=== PATIENT | female | born 1970 | race Caucasian/White ===

== ENCOUNTER 2018-12-21 14:57 | Outpatient (REF) | payer OTHER, SELFPAY ==
--- NOTE | 2018-12-21 14:00 | PAPFT_PTH ---
PATIENT: Ella Upton LOC: [facility]#:[id number] AGE/SX: 48/F ROOM: RE12/21/[address]: Trina Zapata : 1970 BED: DIS: 12/21/2018 SPEC #: [id number] RECD: 12/22/18 12:54 STATUS: FIONA STORY #: [id number] IRVIN: 12/21/18 14:[address]: Trina Zapata DEPT: [facility] Cytology RECD BY: Bruna Bejarano Tissues: 1 - CX/ENDOCX FOR PAP SMEARS Procedures: PAP THIN PREP/UVM Screening HPV DNA PROBE Comments: [id number]
[2018-12-21 22:21] LABS: Iron 74 ug/dL (50-175); Total Iron Binding Capacity 372 ug/dL (250-450); Transferrin Sat 20 % (15-50)
[2018-12-21 22:24] LABS: Abs Immature Grans 0.01 k/cumm (0.0-0.09); Absolute Basophil Count 0.04 k/cumm (0.0-0.2); Absolute Eosinophil Count 0.17 k/cumm (0.0-0.7); Absolute Lymphocyte Count 3.54 k/cumm (1.2-3.4); Absolute Neutrophil Count 3.44 k/cumm (1.2-6.7); Basophils % 0.5; Eosinophils % 2.2; HCT 41.5 % (36.0-46.0); HGB 13.7 g/dL (12.0-15.5); Immature Grans % 0.1; Lymphocytes % 46.6; Mean Corpuscular Hemoglobin 29.5 pg (27.0-33.0); Mean Corpuscular Volume 89.2 fL (80-95); Mean Platelet Volume 9.9 fL (8.0-11.0); Monocytes % 5.3; Neutrophils % 45.3; Platelet Count 259 x1000/uL (130-400); RBC 4.65 m/cumm (4.00-5.20); RBC Distribution Width 13.6 % (11.7-14.6)
[2018-12-21 22:58] LABS: Anion Gap 11.7 mmol/L (3-11); BUN 15 mg/dL (7-18); CO2 26.3 mmol/L (21.0-32.0); CREATININE 0.96 mg/dL (0.55-1.02); Calcium 9.6 mg/dL (8.5-10.1); Chloride 101 mmol/L (98-107); Cholesterol 279 mg/dL (50-200); Ferritin 42 ng/mL (8-388); Glucose 91 mg/dL (70-100); HDL Cholesterol 58 mg/dL (40-60); LDL CHOLESTEROL 187 mg/dL (<100); Potassium 3.9 mmol/L (3.5-5.1); Sodium 139 mmol/L (136-145); TSH (W/Ref FT4) 2.75 uIU/mL (0.358-3.74); Triglyceride 221 mg/dL (30-150); Vitamin B12 1125 pg/mL (193-986)
== END 2018-12-21 15:17 ==
LOC: NCHCN 14:57
PROVIDERS: PCP Nurse Practitioner Family; Visit Provider Nurse Practitioner Family
DX: Z00.00 Encounter for general adult medical examination without abnormal findings (principal); F32.9 Major depressive disorder, single episode, unspecified; F17.200 Nicotine dependence, unspecified, uncomplicated; N39.3 Stress incontinence (female) (male); R41.3 Other amnesia; R51 Headache; Z12.4 Encounter for screening for malignant neoplasm of cervix; Z11.51 Encounter for screening for human papillomavirus (HPV); Z01.419 Encounter for gynecological examination (general) (routine) without abnormal findings
CPT/HCPCS: 80048; 80061; 83721; 88142; 82607; 82728; 83540; 83550; 84443; 85025; 87624

== ENCOUNTER 2020-08-25 22:11 | Outpatient (REF) | payer OTHER, SELFPAY ==
[2020-08-29 10:09] LABS: COVID-19 RT-PCR Result NEGATIVE (Negative)
== END 2020-08-25 22:31 ==
LOC: NCHCN 22:11
PROVIDERS: PCP Nurse Practitioner Family; Visit Provider Nurse Practitioner Family
DX: Z20.828 Contact with and (suspected) exposure to other viral communicable diseases (principal)
CPT/HCPCS: U0003

== ENCOUNTER 2021-07-26 21:10 | Outpatient (REF) | payer OTHER, SELFPAY ==
[2021-07-26 21:56] LABS: Anion Gap 10.4 mmol/L (3-11); BUN 12 mg/dL (7-18); CO2 27.6 mmol/L (21.0-32.0); CREATININE 0.9 mg/dL (0.55-1.02); Calcium 9.2 mg/dL (8.5-10.1); Calculated LDL 168 mg/dL (<100); Chloride 103 mmol/L (98-107); Cholesterol 253 mg/dL (<200); Glucose 88 mg/dL (74-106); HDL Cholesterol 48 mg/dL (40-60); Potassium 4.6 mmol/L (3.5-5.1); Sodium 141 mmol/L (136-145); Triglyceride 186 mg/dL (<150)
== END 2021-07-26 21:11 | disposition home or self-care (01) ==
LOC: NCHCN 21:10
PROVIDERS: PCP Nurse Practitioner Family; Visit Provider Nurse Practitioner Family
DX: R42 Dizziness and giddiness (principal); E78.5 Hyperlipidemia, unspecified; Z00.00 Encounter for general adult medical examination without abnormal findings; L29.9 Pruritus, unspecified
CPT/HCPCS: 80048; 80061

== ENCOUNTER 2021-08-28 17:02 | Outpatient (REF) | payer OTHER, SELFPAY ==
[2021-08-29 14:24] LABS: COVID-19 RT-PCR UVMMC Result Negative (Negative)
== END 2021-08-28 17:03 | disposition home or self-care (01) ==
LOC: NCHCN 17:02
PROVIDERS: PCP Nurse Practitioner Family; Visit Provider Nurse Practitioner Family
DX: Z20.822 Contact with and (suspected) exposure to COVID-19 (principal)
CPT/HCPCS: U0003

== ENCOUNTER 2021-09-03 01:58 | Outpatient (CLI) | payer OTHER, SELFPAY ==
--- NOTE | 2021-09-03 15:00 | DI.MAMMO_ITS ---
Exam(s) MAMMO SCREENING EXAM: MAMMO SCREENING CLINICAL HISTORY: SCREENING, Z12.31. TECHNIQUE: Bilateral full field digital CC and MLO mammographic images were obtained with 3D tomosyn thesis and utilizing computer aided detection (CAD). COMPARISON: Prior mammograms dating back to 2013, the most recent being January 2017. FINDINGS: In the right breast there has been interval development 2 noncalcified nodules, both measuring approx imately 5 x 5 millimeters and located 5 cm in from the nipple on the 3D cc view. In the left breast there is also a new nodular density towards the upper outer quadrant located appro ximately 11 cm in from the nipple on the MLO view. No malignant-appearing microcalcification groups in either breast There is no significant architectural distortion nor skin thickening-retraction. IMPRESSION: Compared to most recent study of 2016 there are 2 nodules in the right breast and a single new nodule in the left breast. Bilateral spot compression views and bilateral breast ultrasound are recommende d. Category: Density: Breast density Category C or D implies that the patient has dense breast tissue. Dense breast tissue can make it harder to find cancer on a mammogram. Dense breast tissue is also associated with an incr eased risk of breast cancer. This information about the result of the mammogram report was provided to the patient to raise their awareness. Use this report when you speak with the patient about their risks for breast cancer, which includes their family history. At that time, you may recommend additional screening tests (Ultrasoun d or MRI) as these tests may add significant information. A negative radiographic report should not delay biopsy if a dominant or clinically suspicious mass is present. Up to ten percent of cancers are not identified on mammography. A negative report may reinforce clinical impression. Adenosis and dense breasts may obscure an underlying neoplasm. False positive reports average 6 to 10%. Patient will receive a letter notifying them of these results.
== END 2021-09-03 02:18 ==
PROVIDERS: PCP Nurse Practitioner Family; Visit Provider Nurse Practitioner Family
DX: Z12.31 Encounter for screening mammogram for malignant neoplasm of breast (principal); R92.8 Other abnormal and inconclusive findings on diagnostic imaging of breast
CPT/HCPCS: 77063; 77067

== ENCOUNTER 2021-09-20 02:32 | Outpatient (CLI) | payer OTHER, SELFPAY ==
--- NOTE | 2021-09-20 | DI.US_ITS ---
Exam(s) US BREAST LT COMPLETE US BREAST RT COMPLETE MG MAMMO SCREEN CALL BACK BI EXAM: MG MAMMO SCREEN CALL BACK BI AND BILATERAL COMPLETE BREAST ULTRASOUND CLINICAL HISTORY: F/U MAMMO, NEW LT BREAST NODULAR DENSITY, NEW RT BREAST NODULES. TECHNIQUE: BILATERAL spot mammographic images obtained with 3D tomosynthesisand utilizing computer a ided detection (CAD). . Complete BILATERAL breast Ultrasound was also performed, including all 4 quadrants, the retroareolar region, and the ipsilateral axilla. COMPARISON: Prior mammograms were reviewed. This additional imaging was performed due to findings described on the recent screening mammogram of 09/03/2021. FINDINGS: Diagnostic right breast mammogram:Spot compression 3D view does not dissipate 2 similar appearing nod ules. Diagnostic left breast mammogram:Spot-compression 3D view appears to dissipate the nodule described o n the 09/03/2021 mammogram. Bilateral Complete Ultrasound: RIGHT BREAST: At the 5 o'clock position there are 2 adjacent microcysts measuring 5 and 6 millimeters, these corres ponding to the 2 new nodules on the mammogram. At the 10 o'clock position there is another microcyst measuring 4 millimeters. No other 5 significant findings in all 4 quadrants. Right axilla is negative for adenopathy. LEFT BREAST: There are no significant ultrasound findings in the upper outer quadrant correspond to the finding de scribed on the recent screening mammogram (which is also less evident on spot compression view perfor med today). At the 4 o'clock position there is a 6 x 5 millimeter conglomeration of microcysts. At the 1 o'clock position there is a 4 millimeter hemorrhagic microcyst. No other significant ultrasound findings in all 4 quadrants. Left axilla is negative for significant adenopathy. IMPRESSION: 1. All findings today have benign-appearing characteristics. The 2 nodules in the right breast seen o n the recent mammogram correspond to 2 adjacent microcysts at the 5 o'clock position of the right mary lou ast, as described above. Additional benign microcysts is seen at 10 o'clock position of the same righ t breast. 2. Finding in the left breast seen on the recent mammogram appears non concerning on additional imagi ng performed today. Incidentally note today on ultrasound of the left breast are few microcysts as de scribed above. 3. Most importantly, there are no solid lesions seen in either breast. Appropriate follow-up , as discussed by myself with the patient today, is repeat right breast mammogr am in 6 months. The patient was informed of these findings and recommendations prior to leaving the department today. BI-RADS Category 3 - 6 month - Probably Benign Finding: Recommend follow-up mammography in 6 months Breast Density - Category C - Heterogeneously dense Breast density Category C or D implies that the patient has dense breast tissue. Dense breast tissue can make it harder to find cancer on a mammogram. Dense breast tissue is also associated with an incr eased risk of breast cancer. This information about the result of the mammogram report was provided to the patient to raise their awareness. Use this report when you speak with the patient about their risks for breast cancer, which includes their family history. At that time, you may recommend additional screening tests (Ultrasoun d or MRI) as these tests may add significant information. A negative radiographic report should not delay biopsy if a dominant or clinically suspicious mass is present. Up to ten percent of cancers are not identified on mammography. A negative report may reinforce clinical impression. Adenosis and dense breasts may obscure an underlying neoplasm. False positive reports average 6 to 10%. Patient will receive a letter notifying them of these results.
== END 2021-09-20 02:52 ==
PROVIDERS: PCP Nurse Practitioner Family; Visit Provider Nurse Practitioner Family
DX: R92.8 Other abnormal and inconclusive findings on diagnostic imaging of breast (principal); N60.01 Solitary cyst of right breast
CPT/HCPCS: 76642; 77063; 77067

== ENCOUNTER 2022-04-27 13:37 | Emergency (ER) | payer OTHER, SELFPAY ==
[2022-04-27] VITALS (36 sets, daily range): BP systolic 95–137; BP diastolic 57–94; PULSE 53–87; RESP 9–18; TEMP 37.1; O2SAT 96–99
--- NOTE | 2022-04-27 13:15 | RT.EKG_ITS ---
APPROVED REPORT Exam: Resting ECG Reason for Exam: dizzy weak Patient Location: E HR:55 bpm ECG Measurements Heart Rate 55 AXIS UT 157 P 60 QRSd 89 QRS 29 QT 416 T 56 QTc 397 Conclusion Sinus bradycardia...rate< 60
--- NOTE | 2022-04-27 14:15 | DI.CT_ITS ---
Exam(s) CT HEAD WO EXAM: CT HEAD WO CLINICAL HISTORY: Altered mental status. TECHNIQUE: Imaging Protocol: Axial computed tomography images with coronal and sagittal reformatted images were created and reviewed COMPARISON: CT HEAD WITHOUT CONTRAST from 01/10/2010 FINDINGS: Ventricles and Extra axial spaces: Normal in size and morphology for the patient's age. Hemorrhage: None. Cerebral parenchyma: Normal. Midline shift: None. Brainstem/Cerebellum: Normal. Calvarium: Normal. Visualized Paranasal sinuses/Mastoids: Mucous retention cyst left maxillary sinus. Some mucous reten tion in the ethmoid sinuses. Prior sinus surgery. Soft Tissues: Unremarkable. IMPRESSION: No acute intracranial process. RADIATION DOSE DELIVERED: 654.28mGy.cm Total DLP DATA REPOSITORY: All CT scans at this facility are submitted to the National Radiology Data Registry (NRDR) Dose Index Registry (DIR) with the [employer] ([employer]). RADIATION OPTIMIZATION: All CT scans at this facility use at least one of these dose optimization te chniques: automated exposure control; mA and/or kV adjustment per patient size (includes targeted exa ms where dose is matched to clinical indication); or iterative reconstruction.
[2022-04-27 14:16] LABS: Bilirubin Negative (Negative); Blood Negative (Negative); Clarity Clear (Clear); Glucose Negative (Negative); Ketones Negative (Negative); Leukocyte Esterase Negative (Negative); Nitrite Negative (Negative); Specific Gravity <= 1.005 (1.005-1.025); Urobilinogen 0.2 EU/dL (Up TO 0.2)
[2022-04-27 14:33] LABS: *AMPHETAMINES SCREEN URINE Negative (Negative); *BARBITURATES SCREEN URINE Negative (Negative); *BENZODIAZEPINES SCREEN URINE Negative (Negative); Cannabinoids THC Negative (Negative); Cocaine Screen,Urine Negative (Negative); METHADONE URINE SCREEN Negative (Negative); OPIATES URINE SCREEN Negative (Negative)
[2022-04-27 14:49] LABS: Tricyclic Antidepressants Negative (Negative)
[2022-04-27 15:02] LABS: Abs Immature Grans 0.01 10^3/uL (0.0-0.06); Absolute Basophil Count 0.05 10^3/uL (0.0-0.2); Absolute Eosinophil Count 0.08 10^3/uL (0.0-0.7); Absolute Lymphocyte Count 2.87 10^3/uL (1.2-3.4); Absolute Monocyte Count 0.35 10^3/uL (0.1-0.8); Absolute Neutrophil Count 4.17 10^3/uL (1.2-6.7); Basophils % 0.7; Eosinophils % 1.1; HCT 41.8 % (36.0-46.0); HGB 13.9 g/dL (11.2-15.7); Immature Grans % 0.1; Lymphocytes % 38.1; MCH 29.4 pg (27.0-33.0); MCHC 33.3 % (32.0-36.0); MCV 89 fL (80-95); Monocytes % 4.6; Neutrophils % 55.4; Platelet Count 229 10^3/uL (130-400); RBC 4.72 10^6/uL (3.93-5.22); RDW 13.1 % (11.7-14.6); RDW-SD 42.7 fL; WBC 7.53 10^3/uL (4.4-10.8)
[2022-04-27 15:08] LABS: Ammonia < 10 umol/L (11-32)
[2022-04-27 15:20] LABS: ALT 26 U/L (14-59); AST 17 U/L (15-37); Alkaline Phosphatase 79 U/L (46-116); Anion Gap 5.2 mmol/L (3-11); BUN 18 mg/dL (7-18); Bilirubin, Total 0.4 mg/dL (0.2-1.0); CO2 30.8 mmol/L (21.0-32.0); CREATININE 0.9 mg/dL (0.55-1.02); Calcium 9.4 mg/dL (8.5-10.1); Chloride 103 mmol/L (98-107); Glucose 100 mg/dL (74-106); Magnesium 2.2 mg/dL (1.8-2.4); Potassium 4.1 mmol/L (3.5-5.1); Sodium 139 mmol/L (136-145); TSH 2.24 uIU/mL (0.36-3.74); Total Protein 7.8 g/dL (6.4-8.2); Troponin I < 50 ng/L (<or=60)
--- NOTE | 2022-04-27 15:25 | ED.GENADUL_ITS ---
Discharge Plan Disposition Patient Disposition: HOME Condition: Stable Discharge Details Clinical Impression: Malaise, Light-headed feeling Primary Care Provider: Trina Zapata ED Provider: [facility] Home Meds and New Rx's Prescriptions: Continued acyclovir 400 mg tablet 400 mg PO BID fluticasone propionate 50 mcg/actuation spray,suspension 2 spray TI DAILY fexofenadine [Carmina Allergy] 180 mg tablet 180 mg PO DAILY multivitamin tablet 1 tab PO DAILY sertraline 100 mg tablet 150 mg PO DAILY bupropion HCl [Wellbutrin XL] 300 mg tablet extended release 24 hr 300 mg PO QAM ginkgo biloba 500 mg capsule 500 mg PO DAILY Rx Instructions: give with meal/snack Menopause Support 30-400-80 unit-mcg-mg tablet 1 tab PO DAILY trazodone 50 mg tablet Label Comments: Take 1 tablet by mouth at bedtime Discharge Instructions Additional Instructions: Please follow-up with your primary care doctor this week Keep yourself hydrated Regular small meals Return today are reassuring although your blood pressure was slightly low and I am concerned that you may be slightly dehydrated Test your doctor about the urinary frequency, there is no evidence of urinary tract infection today Please return should you have new or worsening complaints Referrals: Trina Zapata [Primary Care Provider] - Discharge Data Discharge Date/Time-TO BE ENTERED AT DEPARTURE: 04/27/22 18:46 Medical Decision Making <Bharat Booth NP - Last Filed: 04/28/22 15:14> Patient presenting to the emergency department for chief complaint of nonspecific dizziness, weakness, and feeling off for the past 5 days. She states that this started when she smelled a coworkers perfume 5 days ago. She had syncope/near syncope and was seen at [facility] and was discharged after work-up. She is called her primary care provider multiple times with nothing further done and she has continued to feel this way. She denies any new or significant worsening of symptoms just a continuation of symptoms. She reports that she has had multiple COVID test all which have been negative. Physical exam is unremarkable except for nonfocal generalized weakness more appreciated by patient then by me on physical exam. No nystagmus, cranial nerves intact. We will plan on checking labs and performing CT imaging of the head because she did not have this performed before. Review of labs shows an unremarkable CBC, CMP is also unremarkable, within normal range TSH, negative troponin, ammonia less than 10, urine does show low specific gravity of 1.05 otherwise urinalysis is unremarkable. UDS is also negative. Patient reassessed and states some improvement of symptoms but has a slight head ache. We will continue to perform CT imaging of the head and give Tylenol, Zofran, Benadryl. Review of CT scan and radiologist interpretation shows no acute findings. Given overall unremarkable labs and negative head CT scan I do not find an obvious cause for patient's symptoms. Differential diagnosis to include acute anxiety/stress reaction, diabetes insipidus secondary to medications but patient has stable laboratory work-up, MS, undifferentiated neurological condition. Patient pending completion of fluids and medications but will sign patient out to [facility] [place]. Patient will need to be ambulated and reassessed prior to suspicion of discharge home will encourage patient to follow-up with primary care provider for reassessment and discussion of possible med change. Lab Data Lab results reviewed: Yes I reviewed the patient's lab results. <SALEEM Bower - Last Filed: 04/27/22 19:21> Patient presenting to the emergency department for chief complaint of nonspecific dizziness, weakness, and feeling off for the past 5 days. She states that this started when she smelled a coworkers perfume 5 days ago. She had syncope/near syncope and was seen at [facility] and was discharged after work-up. She is called her primary care provider multiple times with nothing further done and she has continued to feel this way. She denies any new or significant worsening of symptoms just a continuation of symptoms. She reports that she has had multiple COVID test all which have been negative. Physical exam is unremarkable except for nonfocal generalized weakness more appreciated by patient then by me on physical exam. No nystagmus, cranial nerves intact. We will plan on checking labs and performing CT imaging of the head because she did not have this performed before. Review of labs shows an unremarkable CBC, CMP is also unremarkable, within normal range TSH, negative troponin, ammonia less than 10, urine does show low specific gravity of 1.05 otherwise urinalysis is unremarkable. UDS is also negative. Patient reassessed and states some improvement of symptoms but has a slight headache. We will continue to perform CT imaging of the head and give Tylenol, Zofran, Benadryl. Review of CT scan and radiologist interpretation shows no acute findings. Given overall unremarkable labs and negative head CT scan I do not find an obvious cause for patient's symptoms. Differential diagnosis to include acute anxiety/stress reaction, diabetes insipidus secondary to medications but patient has stable laboratory work-up, MS, undifferentiated neurological condition. Patient pending completion of fluids and medications but will sign patient out to [place] [facility] [place]. Patient will need to be ambulated and reassessed prior to suspicion of discharge home will encourage patient to follow-up with primary care provider for reassessment and discussion of possible med change. Care accepted and transition from Malachi Booth pending migraine cocktail and IV fluid At time of reassessment, patient is mildly hypotensive and tired in appearance, she was given 1 L of LR, and approximately 1 hour sugar 3 observed and is sitting up, conversant, with stable blood pressure and request discharge home I do not see any evidence of acute abnormality on any of her diagnostic testing She will need close outpatient reassessment and we discussed the importance of this She given the threshold to return should she have new or worsening complaints She is ambulatory with steady gait at time of discharge home HPI <Bharat Booth NP - Last Filed: 04/28/22 15:14> General Mode of arrival: EMS . Date/Time Provider Initiated Documentation: 04/27/22 13:47 . Limitations to Documentation: no limitations . Information obtained by: patient, RN notes reviewed and old records reviewed . History of Present Illness 51 year old F presents to the emergency department with the chief complaint of Dizziness, feeling off, described as moderate, with intensity rated at 4. Quality is described as aching, and is localized to the head. Patient reports no radiation. Patient started experiencing this day(s) (5) and it has been constant. No relieving factors improve symptom(s), Other factors that worsen symptoms (Smelling perfume) . Patient notes denies chest pain, nausea/vomiting and shortness of breath. Patient did receive the following treatments prior to arrival, NSAID Related Data Home Medications Medication Instructions Recorded Confirmed bupropion HCl 300 mg 24 hr tablet, 300 mg PO QAM 01/12/19 04/27/22 extended release (Wellbutrin XL) fexofenadine 180 mg tablet 180 mg PO DAILY 01/12/19 04/27/22 (Carmina Allergy) fluticasone propionate 50 2 spray intranasal DAILY 01/12/19 04/27/22 mcg/actuation nasal spray,suspension multivitamin 1 tab PO DAILY 01/12/19 04/27/22 sertraline 100 mg tablet 150 mg PO DAILY 01/12/19 04/27/22 acyclovir 400 mg tablet 400 mg PO BID 05/02/21 04/27/22 ginkgo biloba 500 mg capsule 500 mg PO DAILY 11/01/21 04/27/22 vit B comp-E 30 unit-folic acid 1 tab PO DAILY 11/01/21 04/27/22 400 [id number] 80 mg tablet (Menopause Support) trazodone 50 mg tablet tab 04/27/22 04/27/22 Allergies Allergy/AdvReac Type Severity Reaction Status Date / Time No Known Allergies Allergy Verified 05/09/21 13:33 General Stated Complaint: Dizzy/Sync BHUMI: 3 Review of Systems <Bharat Booth NP - Last Filed: 04/28/22 15:14> Constitutional Constitutional: Denies chills, Reports fatigue, Denies fever(s), Reports headache(s), Reports lethargy, Reports malaise and Reports weakness (general) Eyes Eyes: Denies blurry vision, Denies change in vision and Denies loss of vision ENT Ears, Nose, Mouth, and Throat: Denies vertigo, Reports dizziness, Reports headache(s) and Denies nasal congestion Cardiovascular Cardiovascular: Denies chest pain, Reports syncope, Denies rapid heart rate and Denies dyspnea Respiratory Respiratory: Denies cough and Denies dyspnea Gastrointestinal Gastrointestinal: Denies abdominal pain, Denies nausea and Denies vomiting Genitourinary Genitourinary: Reports system reviewed and no additional complaints, except as documented Musculoskeletal Musculoskeletal: Reports system reviewed and no additional complaints, except as documented, Denies joint swelling, Denies muscle weakness and Denies numbness Integumentary/Breasts Skin/Breast: Denies rash Neurologic Neurologic: Reports as per HPI, Reports confusion, Denies vertigo, Reports dizziness, Reports syncope, Reports headache(s), Denies localized weakness, Denies loss of vision, Denies memory loss, Denies numbness, Denies sensory deficit, Denies paresthesias and Reports weakness (general) Psychiatric Psychiatric: Reports anxiety, Reports confusion and Denies memory loss Endocrine Endocrine: Reports fatigue and Reports polyuria PFSH <Bharat Booth NP - Last Filed: 04/28/22 15:14> All Active Problems (Updated 04/27/22 @ 18:34 by SALEEM Bower) Malaise (Acute) Light-headed feeling (Acute) Tinnitus of both ears (Acute) Abnormal auditory perception of both ears (Acute) Hx of lumpectomy (Acute) Allergic rhinitis (Acute) Hyperlipidemia (Acute) Cold sore (Acute) Otitis externa (Acute) Hearing loss (Acute) Medical History Arm pain, right Depression Dyspepsia Headache Hot flashes Knee pain, left Memory loss Right inguinal pain Stress incontinence Tobacco abuse Family History Mother Mental illness in member of household Alcoholism Father Hypertension Hyperlipidemia FH: prostate cancer Alcoholism Mental illness in member of household Paternal Grandmother Diabetes Breast cancer Social History Smoking/Tobacco Use Status: Current every day Tobacco Type: cigarettes Smoking packs per day: 0.5 Smoking cigarettes per day: 10.0 and e-cigarettes Quit status: considering quitting Smoking risk assessment performed?: Yes Alcohol Intake: current Alcohol Intake frequency: holidays/special occasions only Alcohol type: wine Drug use: Rarely Substance use type: marijuana Household members: spouse Number of Children: 3 What is your relationship status?: Panel score (0-1 are the most socially isolated patients): 1 Seatbelt use: always Do you feel safe at home: Yes Do you feel safe in your relationship?: Yes Exam <Bharat Booth NP - Last Filed: 04/28/22 15:14> Const General: cooperative, healthy appearing, no acute distress and well groomed Orientation: alert, awake and oriented x3 HENMT Head: normal to inspection Ears: hearing grossly normal bilaterally and TM's normal bilaterally Mouth: oral mucosae normal and moist mucous membranes Throat: posterior oropharynx normal Eyes Visual Rocha: normal visual rocha by confrontation Alignment and Position: alignment normal Periorbital: periorbital findings normal Eyelids: eyelids normal Sclera: sclerae normal Cornea: corneas normal Pupils: PERRL EOM: EOM intact bilaterally Neck Neck: normal visual inspection, full ROM and no meningeal signs Resp Effort & Inspection: normal respiratory effort and able to speak in complete sentences Auscultation: clear to auscultation bilaterally Cardio Rate: regular rate Rhythm: regular rhythm Heart Sounds: S1 normal and S2 normal Neuro General: patient alert, patient awake, patient oriented x3, gait normal, tone normal, moves all extremities, CN's II-XI intact bilaterally and not confused Cognition: normal cognition Speech: speech normal Motor: muscle tone normal throughout, strength 5/5 throughout, no pronator drift, no movement abnormalities noted and no fasciculations Sensory Exam: no sensory deficits noted Coordination: [id number] test normal, Does not sway with eyes open, rapid alternating movement UE normal and rapid alternating movement LE normal Course <Bharat Booth, RAILS DEVELOPER - Last Filed: 04/28/22 15:14> Vital Signs Vital signs: Vital Signs Temperature 37.1 C 04/27/22 13:43 Pulse 56 L 04/27/22 13:43 Respiratory Rate 18 04/27/22 13:43 Blood Pressure 120/64 04/27/22 13:43 Pulse Oximetry 99 04/27/22 13:43 Temperature 37.1 C 04/27/22 13:43 Temperature Source Temporal Artery Scan 04/27/22 13:43 Pulse 55 L 04/27/22 13:53 Pulse 56 L 04/27/22 14:20 Respiratory Rate 14 04/27/22 14:20 Respiratory Effort Non-Labored 04/27/22 14:11 Respiratory Depth Normal 04/27/22 14:11 Blood Pressure 128/62 04/27/22 13:53 Blood Pressure Mean 77 04/27/22 13:53 Pulse Oximetry 98 04/27/22 14:10 Oxygen Delivery Method Room Air 04/27/22 13:43 Oxygen Flow Rate 0 04/27/22 13:43 Pain Level 0 04/27/22 14:11 Lab/Test Results Lab/Test Results: Laboratory Tests Range/Units 04/27/22 04/27/22 04/27/22 13:40 13:40 14:35 WBC (4.4-10.8) 10^3/uL RBC (3.93-5.22) 10^6/uL Hgb (11.2-15.7) g/dL Hct (36.0-46.0) % MCV (80-95) fL MCH (27.0-33.0) pg MCHC (32.0-36.0) % RDW (11.7-14.6) % Plt Count (130-400) 10^3/uL MPV (8.0-11.0) fL Immature Gran % Neutrophils % Lymphocytes % Monocytes % Eosinophils % Basophils % Nucleated RBC % (0.0-0.3) % Absolute Neutrophils (1.2-6.7) 10^3/uL Absolute Lymphocytes (1.2-3.4) 10^3/uL Absolute Monocytes (0.1-0.8) 10^3/uL Absolute Eosinophils (0.0-0.7) 10^3/uL Absolute Basophils (0.0-0.2) 10^3/uL Sodium (136-145) mmol/L 139 Potassium (3.5-5.1) mmol/L 4.1 Chloride (98-107) mmol/L 103 Carbon Dioxide (21.0-32.0) mmol/L 30.8 Anion Gap (3-11) mmol/L 5.2 BUN (7-18) mg/dL 18 Creatinine (0.55-1.02) mg/dL 0.9 Estimated GFR/1.73 m2 (mL/min/1.73m2) >= 60.00 Glucose (74-106) mg/dL 100 Calcium (8.5-10.1) mg/dL 9.4 Magnesium (1.8-2.4) mg/dL 2.2 Total Bilirubin (0.2-1.0) mg/dL 0.4 AST (15-37) U/L 17 ALT (14-59) U/L 26 Alkaline Phosphatase (46-116) U/L 79 Ammonia (11-32) umol/L Troponin I (<or=60) ng/L < 50 Total Protein (6.4-8.2) g/dL 7.8 Albumin (3.4-5.0) g/dL 4.0 TSH (0.36-3.74) uIU/mL 2.24 Urine Color (Yellow) Yellow Urine Clarity (Clear) Clear Urine pH (5-8) 6.0 Ur Specific [place] (1.005-1.025) <= 1.005 Urine Protein (Negative) mg/dL Negative Urine Ketones (Negative) mg/dL Negative Urine Blood (Negative) Negative Urine Nitrite (Negative) Negative Urine Bilirubin (Negative) Negative Urine Urobilinogen (Up TO 0.2) EU/dL 0.2 Ur Leukocyte Esterase (Negative) Negative Urine Glucose (Negative) mg/dL Negative Urine Opiates Screen (Negative) Negative Urine Methadone Screen (Negative) Negative Ur Barbiturates Screen (Negative) Negative Ur Tricyclics Screen (Negative) Negative Ur Amphetamines Screen (Negative) Negative U Benzodiazepines Scrn (Negative) Negative Urine Cocaine Screen (Negative) Negative Ur THC Screen (Negative) Negative Range/Units 04/27/22 04/27/22 14:35 14:35 WBC (4.4-10.8) 10^3/uL 7.53 RBC (3.93-5.22) 10^6/uL 4.72 Hgb (11.2-15.7) g/dL 13.9 Hct (36.0-46.0) % 41.8 MCV (80-95) fL 89 MCH (27.0-33.0) pg 29.4 MCHC (32.0-36.0) % 33.3 RDW (11.7-14.6) % 13.1 Plt Count (130-400) 10^3/uL 229 MPV (8.0-11.0) fL 9.0 Immature Gran % 0.1 Neutrophils % 55.4 Lymphocytes % 38.1 Monocytes % 4.6 Eosinophils % 1.1 Basophils % 0.7 Nucleated RBC % (0.0-0.3) % 0.0 Absolute Neutrophils (1.2-6.7) 10^3/uL 4.17 Absolute Lymphocytes (1.2-3.4) 10^3/uL 2.87 Absolute Monocytes (0.1-0.8) 10^3/uL 0.35 Absolute Eosinophils (0.0-0.7) 10^3/uL 0.08 Absolute Basophils (0.0-0.2) 10^3/uL 0.05 Sodium (136-145) mmol/L Potassium (3.5-5.1) mmol/L Chloride (98-107) mmol/L Carbon Dioxide (21.0-32.0) mmol/L Anion Gap (3-11) mmol/L BUN (7-18) mg/dL Creatinine (0.55-1.02) mg/dL Estimated GFR/1.73 m2 (mL/min/1.73m2) Glucose (74-106) mg/dL Calcium (8.5-10.1) mg/dL Magnesium (1.8-2.4) mg/dL Total Bilirubin (0.2-1.0) mg/dL AST (15-37) U/L ALT (14-59) U/L Alkaline Phosphatase (46-116) U/L Ammonia (11-32) umol/L < 10 L Troponin I (<or=60) ng/L Total Protein (6.4-8.2) g/dL Albumin (3.4-5.0) g/dL TSH (0.36-3.74) uIU/mL Urine Color (Yellow) Urine Clarity (Clear) Urine pH (5-8) Ur Specific [place] (1.005-1.025) Urine Protein (Negative) mg/dL Urine Ketones (Negative) mg/dL Urine Blood (Negative) Urine Nitrite (Negative) Urine Bilirubin (Negative) Urine Urobilinogen (Up TO 0.2) EU/dL Ur Leukocyte Esterase (Negative) Urine Glucose (Negative) mg/dL Urine Opiates Screen (Negative) Urine Methadone Screen (Negative) Ur Barbiturates Screen (Negative) Ur Tricyclics Screen (Negative) Ur Amphetamines Screen (Negative) U Benzodiazepines Scrn (Negative) Urine Cocaine Screen (Negative) Ur THC Screen (Negative) POC- Test(urine) Negative Sign Out <Bharat Booth NP - Last Filed: 04/28/22 15:14> Sign Out Data: Sign Out Comment: signed patient out to [place] [facility] PA. Patient will need to be ambulated and reassessed prior to suspicion of discharge home will encourage patient to follow-up with primary care provider for reassessment and discussion of possible med change Last updated by Bharat Booth NP at 04/27/22 16:15
--- NOTE | 2022-04-27 15:48 | DI.VRAD_ITS ---
PROCEDURE INFORMATION: Exam: CT Head Without Contrast Exam date and time: 04/27/2022 3:21 PM Age: 51 years old Clinical indication: Other: Altered mental status TECHNIQUE: Imaging protocol: Computed tomography of the head without contrast. COMPARISON: No relevant prior studies available. FINDINGS: Brain: Normal. No hemorrhage. Unremarkable white matter. No mass effect. Cerebral ventricles: No ventriculomegaly. Paranasal sinuses: Mild mucosal thickening and mucous retention cyst of the visualized left maxillary sinus. [id number] mucosal thickening of the anterior ethmoid air cells. The frontal sinuses demonstrate limited pneumatization, a developmental variant. Mastoid air cells: Visualized mastoid air cells are well aerated. Bones/joints: Unremarkable. No acute fracture. Soft tissues: Unremarkable. IMPRESSION: 1. No acute intracranial abnormality is appreciated. 2. [id number] paranasal sinus mucosal thickening. Dictated and Authenticated by: Kaden Thapa MD. Ordering:JUVENAL Nicholson MD
[2022-04-27] MEDS: ACETAMINOPHEN 1,000 MG/100 ML BTL 400 MG IVPB (15:54)
[2022-04-27] MEDS: Ondansetron 4 MG/2 ML VIAL IVP (15:55)
[2022-04-27] MEDS: diphenhydrAMINE 50 MG/ML VIAL 25 MG IVP (15:55)
[2022-04-27] MEDS: Normal Saline 500 ML IV (16:04)
[2022-04-27] MEDS: Lactated Ringers 1,000 ML 1000 ML IV (17:45)
[2022-04-29 11:24] LABS: Lyme Ab w Rflx to Lyme Confirm Negative (Negative)
[2022-05-01 19:26] LABS: Anaplasma phagocytophilum Negative (Negative); B. miyamotoi PCR Negative (Negative); Babesia divergens/MO-1 Negative (Negative); Babesia duncani Negative (Negative); Babesia microti Negative (Negative); Ehrlichia chaffeensis Negative (Negative); Ehrlichia ewingii/canis Negative (Negative); Ehrlichia muris eauclairensis Negative (Negative)
== END 2022-04-27 18:46 | disposition home or self-care (01) ==
PROVIDERS: Nurse Practitioner Family; Emergency Provider Physician Assistant; PCP Nurse Practitioner Family
DX: R42 Dizziness and giddiness (principal); R53.81 Other malaise; F17.210 Nicotine dependence, cigarettes, uncomplicated; F17.290 Nicotine dependence, other tobacco product, uncomplicated; R53.1 Weakness
CPT/HCPCS: 36415; 80053; 80307; 87798; 93005; 96361; 96374; 96375; 99284; 70450; 81003; 82140; 83735; 84443; 84484; 85025; 86618; 93010; J0131; J1200; J2405

== ENCOUNTER → 2022-05-01 01:59 | Outpatient (CLI) | payer OTHER, SELFPAY ==
--- NOTE | 2022-05-01 | DI.US_ITS ---
Exam(s) MG MAMMO DIAGNOSTIC UNI US BREAST RT COMPLETE EXAM: MG MAMMO DIAGNOSTIC UNI CLINICAL HISTORY: F/U ABNL MAMMO, 6 MO F/U RT BREAST, EVAL NODULES TECHNIQUE: Mammograms were interpreted according to the usual protocol including computer analysis w ith CAD system, tomosynthesis and C-view imaging. COMPARISON: FINDINGS: Routine mammogram of the right breast with additional mammographic views was obtained. This is inter preted in conjunction with right breast ultrasound. Examination is compared with the prior examinati on of August 2021. On today's examination there is increased prominence of an area of nodularity p rojected in the retroareolar portion of the right breast about 5 cm from the nipple. Otherwise the p reviously noted mammographic abnormalities are less prominent today. Additional views show a well-circumscribed partially obscured nodule. Breast ultrasound shows an irina roximately 7 millimeter in greatest diameter cyst with some internal debris in the 1 o'clock position about 4 cm from nipple. Prominent retroareolar ducts are also noted. No suspicious solid mass iden tified on ultrasound examination. IMPRESSION: No specific evidence of malignancy. Follow-up right breast mammogram recommended in 6 months, additi onally left breast mammogram is recommended in 6 months to resume routine annual screening of the lef t breast. BI-RADS Category 3 - 6 month - Probably Benign Finding: Recommend follow-up mammography in 6 months Breast Density - Category B - Scattered areas of fibroglandular density
== END ==
PROVIDERS: PCP Nurse Practitioner Family; Visit Provider Nurse Practitioner Family
DX: R92.8 Other abnormal and inconclusive findings on diagnostic imaging of breast (principal)
CPT/HCPCS: 76642; 77061; 77065; G0279

== ENCOUNTER 2022-07-22 02:07 | Outpatient (CLI) | payer OTHER, SELFPAY ==
--- NOTE | 2022-07-22 15:33 | DI.RAD_ITS ---
Exam(s) XR THUMB LT EXAM: XR THUMB LT CLINICAL HISTORY: LT THUMB PAIN, M79.645. TECHNIQUE: 2D digital imaging was performed. Three views. COMPARISON: None. FINDINGS: BONES: No acute fracture is present. No bony destructive lesion is seen. JOINTS: No dislocation present. Minimal degenerative changes 1st carpal metacarpal joint. SOFT TISSUE: Normal. IMPRESSION: Minimal degenerative changes 1st carpal metacarpal joint. DATA REPOSITORY: RADIATION DOSE DELIVERED:
== END 2022-07-22 02:27 ==
PROVIDERS: PCP Nurse Practitioner Family; Visit Provider Nurse Practitioner Family
DX: M79.645 Pain in left finger(s) (principal); M18.12 Unilateral primary osteoarthritis of first carpometacarpal joint, left hand
CPT/HCPCS: 73140

== ENCOUNTER 2023-01-23 01:01 | Outpatient (CLI) | payer OTHER, SELFPAY ==
--- NOTE | 2023-01-23 | DI.US_ITS ---
Exam(s) US BREAST RT LIMITED MG MAMMO DIAGNOSTIC BI EXAM: MG MAMMO DIAGNOSTIC BI and U/S breast RT limited CLINICAL HISTORY: ABNL MAMMO R92.8 6 MO FU. TECHNIQUE: Craniocaudal and mediolateral oblique Full Field Digital Mammography views of the bilater al breast with Computer Aided Diagnosis followed by Tomosynthesis and right breast ultrasound. COMPARISON: Comparison is made with prior examinations. FINDINGS: Mammography/Tomosynthesis: Masses/Architectural Distortion: The asymmetric breast tissue in the upper outer quadrant of the righ t breast appears stable. Microcalcifictions: No suspicious pleomorphic-type are seen. Stable microcalcifications are seen in t he right breast. Skin Thickening/Nipple Retraction: None. Limited right breast US: Echotexture: Normal appearance of the glandular tissue. Shadowing: No suspicious foci. Cyst: None. Solid lesions: None seen. Ductal dilation: None. IMPRESSION: 1. No evidence of malignancy is noted. 2. A six-month follow-up right mammogram is recommended. The left mammogram is unremarkable. 3. The findings were discussed with the patient on the date of the examination. BI-RADS Category 3 - 6 month - Probably Benign Finding: Recommend follow-up imaging in 6 months Breast Density - Category B - Scattered areas of fibroglandular density Breast density Category C or D implies that the patient has dense breast tissue. Dense breast tissue can make it harder to find cancer on a mammogram. Dense breast tissue is also associated with an incr eased risk of breast cancer. This information about the result of the mammogram report was provided to the patient to raise their awareness. Use this report when you speak with the patient about their risks for breast cancer, which includes their family history. At that time, you may recommend additional screening tests (Ultrasoun d or MRI) as these tests may add significant information. A negative radiographic report should not delay biopsy if a dominant or clinically suspicious mass is present. Up to ten percent of cancers are not identified on mammography. A negative report may reinforce clinical impression. Adenosis and dense breasts may obscure an underlying neoplasm. False positive reports average 6 to 10%. Patient will receive a letter notifying them of these results.
== END 2023-01-23 01:21 ==
LOC: DI 01:01
PROVIDERS: PCP Nurse Practitioner Family; Visit Provider Nurse Practitioner Family
DX: R92.8 Other abnormal and inconclusive findings on diagnostic imaging of breast (principal)
CPT/HCPCS: 76642; 77062; 77066; G0279

== ENCOUNTER 2023-03-21 00:16 | Outpatient (CLI) | payer OTHER, SELFPAY ==
--- NOTE | 2023-03-21 12:30 | DI.RAD_ITS ---
Exam(s) XR KNEE RT 3V AP,LAT,LASHAE EXAM: XR KNEE RT 3V AP,LAT,LASHAE CLINICAL HISTORY: RT KNEE PAIN, M25.561. TECHNIQUE: 2D digital imaging was performed. Three views. COMPARISON: CR XR KNEE LT 3V AP,LAT,LSAHAE from 03/21/2023 FINDINGS: BONES: No acute fracture is present. No bony destructive lesion is seen. Tiny enthesophyte at quadr iceps insertion. JOINTS: The knee is normally aligned. No joint effusion is seen. No significant degenerative change s. SOFT TISSUE: Normal. IMPRESSION: Unremarkable radiographs of the right knee. DATA REPOSITORY: RADIATION DOSE DELIVERED:
--- NOTE | 2023-03-21 12:34 | DI.RAD_ITS ---
Exam(s) XR KNEE LT 3V AP,LAT,LASHAE EXAM: XR KNEE LT 3V AP,LAT,LASHAE CLINICAL HISTORY: LT KNEE PAIN, M25.562. TECHNIQUE: 2D digital imaging was performed. Three views. COMPARISON: MR MRI L LOWER JOINT WO CONT from 02/22/2013 FINDINGS: BONES: No acute fracture is present. No bony destructive lesion is seen. Tiny enthesophyte at quad riceps insertion on the patella. JOINTS: The knee is normally aligned. No joint effusion is seen. The joint spaces are maintained. SOFT TISSUE: Normal. IMPRESSION: Normal radiographs of the left knee. DATA REPOSITORY: RADIATION DOSE DELIVERED:
== END 2023-03-21 00:36 ==
LOC: DI 00:16
PROVIDERS: PCP Nurse Practitioner Family; Visit Provider Nurse Practitioner Family
DX: M25.562 Pain in left knee (principal)
CPT/HCPCS: 73562

== ENCOUNTER → 2024-03-02 03:58 | Outpatient (CLI) | payer MEDICAID, SELFPAY ==
--- NOTE | 2024-03-02 | DI.MAMMO_ITS ---
Exam(s) MAMMO SCREENING EXAM: MAMMO SCREENING CLINICAL HISTORY: SCREENING, Z12.31. TECHNIQUE: Bilateral full field digital CC and MLO mammographic images were obtained with 3D tomosyn thesis and utilizing computer aided detection (CAD). COMPARISON: Prior mammograms were reviewed. Breast ultrasound January 2023 also reviewed FINDINGS: No new significant findings in the left breast. In the right breast on 3D MLO imaging there is a well-defined noncalcified 5 x 4 mm nodule located 4 cm in from the nipple, more evident than previous. A second asymmetric density-possible nodule close to this 1st nodule is also evident on the MLO view. There are no malignant-appearing microcalcification groups in this region or elsewhere in either shanna [address]. There is no significant architectural distortion nor skin thickening-retraction. IMPRESSION: 1. No radiographic evidence of malignancy in left breast. 2. There are 2 small asymmetric densities in the right breast as described above. Spot compression M LO views and breast ultrasound recommended. BI-RADS Category 0 - Assessment Incomplete: Need additional imaging evaluation Breast Density - Category B - Scattered areas of fibroglandular density Breast density Category C or D implies that the patient has dense breast tissue. Dense breast tissue can make it harder to find cancer on a mammogram. Dense breast tissue is also associated with an incr eased risk of breast cancer. This information about the result of the mammogram report was provided to the patient to raise their awareness. Use this report when you speak with the patient about their risks for breast cancer, which includes their family history. At that time, you may recommend additional screening tests (Ultrasoun d or MRI) as these tests may add significant information. A negative radiographic report should not delay biopsy if a dominant or clinically suspicious mass is present. Up to ten percent of cancers are not identified on mammography. A negative report may reinforce clinical impression. Adenosis and dense breasts may obscure an underlying neoplasm. False positive reports average 6 to 10%. Patient will receive a letter notifying them of these results.
== END ==
PROVIDERS: PCP Nurse Practitioner Family; Visit Provider Nurse Practitioner Family
DX: Z12.31 Encounter for screening mammogram for malignant neoplasm of breast (principal); R92.8 Other abnormal and inconclusive findings on diagnostic imaging of breast
CPT/HCPCS: 77063; 77067

== ENCOUNTER → 2024-03-23 02:12 | Outpatient (CLI) | payer MEDICAID, SELFPAY ==
--- OUTSIDE RECORDS SUMMARY | 2024-03-17 01:03 | XMS_ITS ---
Author Name Unknown Address [address] [place] [address] [phone] Phone Organization Unknown Address [address] [place] [address] [phone] Phone Care Team Providers Care Lime Kiln And Recausticizing Operator Name Role Phone JOEL Olson Attending Unavailable GAGE Philippe Primary Unavailable Results XR KNEE 1V OR 2V LT* - Compl eted: 11/25/2023 14:01 LOINC: [place], [place] [address] PACS MANAGER MENTAL HEALTH REPORT Patient Name: EMMA FRITZ MRN: Sex: : Age: [id number] F 1970 53 Account: Accession: Admit: StayType: [id number] 11/25/2023 CLINIC Ordered: Order ID: Submitted: Ordering Provider: 11/25/2023 13:44 [id number] NABILA CONNER Completed: Technologist: Resulted: 11/25/2023 14:01 KVK 11/25/2023 14:11 Study Description: XR KNEE 1V OR 2V LT Study Reason: Pain Technique: 2D digital imaging was performed. 1 was obtained, sunrise view COMPARISON: None. FINDINGS: Bones: No acute fractures present. No bony destructive lesion is seen. Joints: Patellofemoral joint space is maintaiined. Patella normally postioned. Soft tissues: Unremarkable. IMPRESSION: No acute abnormality. Report Digitally Signed by Maria De Jesus Crockett on 11/25/2023 02:11 PM EST Social History Type Status Start Date End Date Code Code Syst em Smoking History Unknown if ever smoked [id number] Sex Female Hospital Discharge Instructions Should you have any questions prior to discharge, please contact a member of your healthcare team. If you have left the hospital and have any questions, please contact your primary care physician. Reason For Referral No Data Found Plan of Treatment MRI LOWER EXT JOINT W/O CONTRAST 2023 Encounters Encounter Diagnosis Start Date Code Code Sys tem 11/25/2023 [id number] SNOMED-CT Personal Care Team Section Performer Name Performer Role Active Date Inactive Da te
--- OUTSIDE RECORDS SUMMARY | 2024-03-17 01:04 | XMS_ITS ---
Author Name Unknown Address [address] [place] [address] [phone] Phone Organization Unknown Address [address] [place] [phone] Phone Care Team Providers Care Padded Box Sewer Name Role Phone JOEL Olson Attending Unavailable GAGE Philippe Primary Unavailable Results MR LOWER EXT ANY JOINT LT WO CONTRAST - Completed: 12/09/2023 15:15 LOINC: [place], [place] [address] PACS CASING PULLER REPORT Patient Name: EMMA FRITZ MRN: Sex: : Age: [id number] F 1970 53 Account: Accession: Admit: StayType: [id number] 12/09/2023 O/P Ordered: Order ID: Submitted: Ordering Provider: 12/09/2023 14:37 [id number] NABILA POOLE Completed: Technologist: Resulted: 12/09/2023 15:15 HTP 12/09/2023 15:20 Study Description: MR LOWER EXT ANY JOINT LT WO CONTRAST Study Reason: Pain TECHNIQUE: AX PDFS, SAG PD, SAG PDFS, COR T1, COR T2FS, COR OBL PDFS, SAG OBL PD COMPARISON: Patellar view 25 November 2023 FINDINGS: BONES: There is no fracture or contusion pattern. JOINTS: Articular cartilage is unremarkable. No joint effusion is present. TENDONS: Extensor mechanism: Unremarkable. Medial retinaculum: Unremarkable. Lateral retinaculum: Unremarkable. Popliteus: Unremarkable. Biceps femoris: Unremarkable. Iliotibial band: Unremarkable. Pes anserine tendons: Unremarkable. MUSCLES: Unremarkable. MENISCI: The medial meniscus is unremarkable. The lateral meniscus is unremarkable. SOFT TISSUES: Unremarkable. LIGAMENTS: Anterior Cruciate: Unremarkable. Posterior Cruciate: Unremarkable. Medial Collateral:Unremarkable. Lateral Collateral: Unremarkable. IMPRESSION: Unremarkable MRI of the knee. Report Digitally Signed by Maria De Jesus Crockett on 12/09/2023 03:20 PM EDT Social History Type Status Start Date End Date Code Code Syst em Smoking History Unknown if ever smoked [id number] Sex Female Hospital Discharge Instructions Should you have any questions prior to discharge, please contact a member of your healthcare team. If you have left the hospital and have any questions, please contact your primary care physician. Reason For Referral No Data Found Plan of Treatment MRI LOWER EXT JOINT W/O CONTRAST 2023 Encounters Encounter Diagnosis Start Date Code Code Sys tem 12/09/2023 [id number] [employer] Personal Care Team Section Performer Name Performer Role Active Date Inactive Da te
--- NOTE | 2024-03-23 | DI.MAMMO_ITS ---
Exam(s) MG MAMMO SCREEN CALL BACK UNI US BREAST RT LIMITED EXAM: MG MAMMO SCREEN CALL BACK UNI-RIGHT AND COMPLETE RIGHT BREAST ULTRASOUND CLINICAL HISTORY: 2 asymmetric densities 4 cm from nipple, rt breast. TECHNIQUE: Unilateral RIGHT BREAST spot mammographic images obtained with 3D tomosynthesisand utiliz ing computer aided detection (CAD). . Complete RIGHT breast Ultrasound was also performed, including all 4 quadrants, the retroareolar jonathan on, and the ipsilateral axilla. COMPARISON: Prior mammograms were reviewed. This additional imaging was performed due to findings described on the recent screening mammogram of 03/02/2024. FINDINGS: DIAGNOSTIC MAMMOGRAM: Additional mammographic views performed todayis somewhat equivocal for the presence of true nodules. We proceeded with ultrasound... COMPLETE RIGHT BREAST ULTRASOUND: Ultrasound performed today reveals a solitary finding at the 4 o'clock position which is a 5 x 3 mm b enign microcyst. No solid lesions seen in all 4 quadrants.. Scanning of the ipsilateral axilla reveals no significant adenopathy. IMPRESSION: 1. Benign right breast findings as described above.. No evidence of malignancy Appropriate follow-up is to keep this patient on a yearly mammogram schedule, with earlier imaging if a self detected breast change is noted. The patient was informed of these findings and recommendations by myself prior to leaving the departm ent today. BI-RADS Category 2 - Benign Findings Breast Density - Category B - Scattered areas of fibroglandular density Breast density Category C or D implies that the patient has dense breast tissue. Dense breast tissue can make it harder to find cancer on a mammogram. Dense breast tissue is also associated with an incr eased risk of breast cancer. This information about the result of the mammogram report was provided to the patient to raise their awareness. Use this report when you speak with the patient about their risks for breast cancer, which includes their family history. At that time, you may recommend additional screening tests (Ultrasoun d or MRI) as these tests may add significant information. A negative radiographic report should not delay biopsy if a dominant or clinically suspicious mass is present. Up to ten percent of cancers are not identified on mammography. A negative report may reinforce clinical impression. Adenosis and dense breasts may obscure an underlying neoplasm. False positive reports average 6 to 10%. Patient will receive a letter notifying them of these results.
== END ==
PROVIDERS: PCP Nurse Practitioner Family; Visit Provider Nurse Practitioner Family
DX: D24.1 Benign neoplasm of right breast (principal)
CPT/HCPCS: 76642; 77063; 77067

== ENCOUNTER 2024-10-14 21:15 | Outpatient (REF) | payer MEDICAID, SELFPAY ==
--- OUTSIDE RECORDS SUMMARY | 2024-10-14 21:16 | XMS_ITS ---
Author Organization Unknown Address [address] [place] [address] [phone] Phone Care Team Providers Care Home Decorator Name Role Phone JOEL Olson Attending Unavailable GAGE Philippe Primary Unavailable Results XR KNEE 1V OR 2V LT* - Compl eted: 11/25/2023 14:01 LOINC: [facility] [place], [place] [address] PACS HEALTH AND FITNESS INSTRUCTOR REPORT Patient Name: EMMA FRITZ MRN: Sex: : Age: [id number] F 1970 53 Account: Accession: Admit: StayType: [id number] 11/25/2023 CLINIC Ordered: Order ID: Submitted: Ordering Provider: 11/25/2023 13:44 [id number] NABILA CONNER Completed: Technologist: Resulted: 11/25/2023 14:01 [...] Smoking History Unknown if ever smoked [id number] Sex Female Hospital Discharge Instructions [...] Start Date Code Code Sys tem 11/25/2023 [id number] SNOMED-CT Personal Care Team Section Performer Name Performer Role Active Date Inactive Da te
--- OUTSIDE RECORDS SUMMARY | 2024-10-14 21:17 | XMS_ITS | Encounter Summary ---
Author Organization [facility] Address [address] [place] [address] Care Team Providers Care Natural Resources Specialist Name Role Phone Unavailable Primary Care Provider Unavailabl e Encounter Details Date Type Department Care Team (Late st Contact Info) Description 08/03/2003 Results Only [facility] conversion [address] [place] [address] Mynor Bernard MD [address] [place] [address] Social History Tobacco Use Types Packs/Day Years Used Date Smoking Tobacco: Never Assessed Comments Unknown Sex and Gender Information Value Date Recorded Sex Assigned at Not on file Legal Sex Female 18:25 EST Gender Identity Female 04/22/2022 12:45 EDT Sexual Orientation Not on file documented as of this encounter Plan of Treatment Not on file documented as of this encounter Procedures Procedure Name Priority Date/Time Associated Diagnosis Comments SURGICAL PATHOLOGY Routine 08/03/2003 0:00 EST documented in this encounter Results * SURGICAL PATHOLOGY (08/03/2003 0:00 EST) Pathology Report: SURGICAL PATHOLOGY REPORT Reports generated via electronic interface contain original data; however they are lacking the format of the original report. Caution should be taken when reading/interpreti ng unformatted reports. Name: ? MICHEL ELLA ? Accession #: ? [id number] ? : ? 1970 (Age: 32) ??F ? Collect Date: ? 08/03/2003 ? Location: ? [facility] ? Receive Date: ? 08/03/2003 ? Provider: MYNOR BERNARD MD Copy to: [facility] NURSING HOME MANAGER ??[facility] [address] ??[id number] ? Final Pathologic Diagnosis: A. ?Breast, left, 4 o' clock, 1.0 cm from areola, excisional biopsy: 1. 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 B. ?Breast, left, 4 o' clock, 0.0 cm from areola, excisional biopsy: 1. ?Fibroadenoma (1.4 cm maximal diameter). Document reviewed and electronically signed by: RONY VIERA MD Report ??Date: 08/05/2003 17:03 By the signature above, the attending physician certifies that he/she has personally conducted a gross and/or microscopic examination of the described specimens and rendered or confirmed the above diagnosis. Specimen(s) Received: A. ?4 o' clock 1 cm from areola L breast (#1) B. ?4 o' clock 0 cm from areola L breast (#2) Clinical History: ? Lt breast mass ??fibroadenoma by US Gross Description: ? Received in formalin labeled Michel and 1 cm from areola L breast 4 o' clock is a avila-white firm fibrous unoriented 1.3 x 1.1 x 0.6 cm soft tissue which weighs 0.67 grams. ??The cut surfaces reveal a avila-partida rubbery spherical homogeneous nodule measuring 0.6 cm in diameter. ??The remaining cut surfaces are dense avila-white firm fibrous tissues. ??The specimen is inked, serially sectioned, and is entirely submitted as (A1) and (A2), with (A1) to include the spherical nodule. Received in formalin labeled Michel and 4 o' clock from areola left breast is a avila-white unoriented 1.0 gm nodule which measures 1.5 x 1.2 x 0.8 cm. ??The cut surfaces are dense avila-white and diffusely nodular. ??The specimen is inked, serially sectioned and is entirely submitted as (B1) and (B2). ??(Adina Diaz)/[facility] End of Report TIERNEY COLEMAN 08/03/2003 08/03/2003 15: 28 EST us Mynor Bernard MD PATHOLOGY ORDERABLES Final Result TIERNEY COLEMAN [address] [place] [address] documented in this encounter Visit Diagnoses Not on filedocumented in this encounter
--- OUTSIDE RECORDS SUMMARY | 2024-10-14 21:17 | XMS_ITS ---
Author Organization Unknown Address [address] [place] [phone] Phone Care Team Providers Care Skein Mercerizing Machine Operator Name Role Phone JOEL Olson Attending Unavailable GAGE Philippe Primary Unavailable Results MR LOWER EXT ANY JOINT LT WO CONTRAST - Completed: 12/09/2023 15:15 LOINC: [facility] [place], [place] [address] PACS P D DRIVER REPORT Patient Name: EMMA FRITZ MRN: Sex: : Age: [id number] F 1970 53 Account: Accession: Admit: StayType: [id number] 12/09/2023 O/P Ordered: Order ID: Submitted: Ordering Provider: 12/09/2023 14:37 [id number] NABILA POOLE Completed: Technologist: Resulted: 12/09/2023 15:15 [...] Smoking History Unknown if ever smoked [id number] Sex Female Hospital Discharge Instructions Should [...] Start Date Code Code Sys tem 12/09/2023 [id number] [employer] Personal Care Team Section Performer Name Performer Role Active Date Inactive Da te
--- OUTSIDE RECORDS SUMMARY | 2024-10-14 21:17 | XMS_ITS | Encounter Summary ---
Author Organization [facility] Address [address] [place] [address] Care Team Providers Care Photo Intern Name Role Phone Unknown, Provider Primary Care Provider Trina Briceño APRN Primary Care Provider [phone] Encounter Details Date Type Department Care Team (Late st Contact Info) Description 08/26/2020 Lab Requisition [facility] Pathology & Laboratory Medicine - [address] [address] Outr Resulting Lab, Provider Social History Tobacco Use Types Packs/Day Years [...] Procedure Name Priority Date/Time Associated Diagnosis Comments DO NOT ORDER STANDALONE - BROAD COVID TEST Today 08/25/2020 13:00 EST COVID-19 TESTING Routine 08/25/2020 13:0 0 EST documented in this encounter Results * DO NOT ORDER STANDALONE - BROAD COVID TEST (08/25/2020 13:00 EST) COVID-19 rt-PCR Result NEGATIVE Negative 2020 10:03 EST [facility] Comment: 2019-novel Coronavirus (2019-nCoV) not detected by the qRT-PCR assay. Consider testing for other respiratory viruses or re-collecting for 2019-nCoV testing. Note: Optimum timing for peak viral levels during infections caused by 2019-nCoV have not been determined. Collection of multiple specimens from the same patient may be necessary to detect the virus. Limitations Positive results are indicative of active infection with SARS-CoV-2 but do not rule out bacterial infection or co-infection with other viruses. The agent detected may not be the definite cause of disease. In addition, detection of viral RNA may not indicate the presence of infectious virus or that SARS-CoV-2 is the causative agent for clinical symptoms. Negative results do not preclude SARS-CoV-2 infection and should not be used as the sole basis for patient management decisions. Negative results must be combined with clinical observations, patient history, and epidemiological information. False negative results may also occur if amplification inhibitors are present in the specimen or if inadequate numbers of organisms are present in the specimen. Optimum specimen types and timing for peak viral levels during infections caused by SARS-CoV-2 have not been fully determined. Collection of multiple specimens (types and time points) from the same patient may be necessary to detect the virus. The test was validated for use with upper respiratory specimens obtained via nasopharyngeal or oropharyngeal swabs in VTM, UTM, M4, M5, M6, saline, and MTM media. The performance of this test has not been established for other specimens. Specimens collected using other FDA recommended Specimen Collection Materials listed in the FDA COVID-19 [employer] communication (December 16, 2019) are processed with the caveat that they were not all validated for use with this test and the result must be interpreted in this context. Furthermore, a false negative results may occur if a specimen is improperly collected, transported or handled. If the virus mutates in the RT-PCR target region, SARS-CoV-2 may not be detected or may be detected less predictably. Inhibitors or other types of interference may produce a false negative result. An interference study evaluating the effect of common cold medications was not performed. This test is not FDA-cleared but its performance characteristics were established by our CLIA-certified, CAP-accredited, high complexity laboratory in accordance with CLIA regulations, College of [employer] (CAP) guidelines (Dec 09, 2019), and FDA guidance (Nov 20, 2019). This test is only for use under the Food and Drug Administration's Emergency Use Authorization. Swab ENTIRE NASOPHARYNX / Unknown 08/25/2020 13:00 EST 08/26/2020 23:07 EST us Provider Outr Resulting Lab MICROBIOLOGY - GENER AL ORDERABLES Final Result [facility] [place], [place] * COVID-19 TESTING (08/25/2020 13:00 EST) COVID-19 rt-PCR Result NEGATIVE Negative 2020 10:03 EST [facility] Comment: 2019-novel Coronavirus (2019-nCoV) not detected by the qRT-PCR assay. Consider testing for other respiratory viruses or re-collecting for 2019-nCoV testing. Note: Optimum timing for peak viral levels during infections caused by 2019-nCoV have not been determined. Collection of multiple specimens from the same patient may be necessary to detect the virus. Limitations Positive results are indicative of active infection with SARS-CoV-2 but do not rule out bacterial infection or co-infection with other viruses. The agent detected may not be the definite cause of disease. In addition, detection of viral RNA may not indicate the presence of infectious virus or that SARS-CoV-2 is the causative agent for clinical symptoms. Negative results do not preclude SARS-CoV-2 infection and should not be used as the sole basis for patient management decisions. Negative results must be combined with clinical observations, patient history, and epidemiological information. False negative results may also occur if amplification inhibitors are present in the specimen or if inadequate numbers of organisms are present in the specimen. Optimum specimen types and timing for peak viral levels during infections caused by SARS-CoV-2 have not been fully determined. Collection of multiple specimens (types and time points) from the same patient may be necessary to detect the virus. The test was validated for use with upper respiratory specimens obtained via nasopharyngeal or oropharyngeal swabs in VTM, UTM, M4, M5, M6, saline, and MTM media. The performance of this test has not been established for other specimens. Specimens collected using other FDA recommended Specimen Collection Materials listed in the FDA COVID-19 [employer] communication (December 16, 2019) are processed with the caveat that they were not all validated for use with this test and the result must be interpreted in this context. Furthermore, a false negative results may occur if a specimen is improperly collected, transported or handled. If the virus mutates in the RT-PCR target region, SARS-CoV-2 may not be detected or may be detected less predictably. Inhibitors or other types of interference may produce a false negative result. An interference study evaluating the effect of common cold medications was not performed. This test is not FDA-cleared but its performance characteristics were established by our CLIA-certified, CAP-accredited, high complexity laboratory in accordance with CLIA regulations, College of [employer] (CAP) guidelines (Dec 09, 2019), and FDA guidance (Nov 20, 2019). This test is only for use under the Food and Drug Administration's Emergency Use Authorization. Performing Lab [facility] 2020 10:03 EST [facility] Swab 08/25/2020 13:0 0 EST 08/26/2020 23:07 EST us Provider Outr Resulting Lab MICROBIOLOGY - GENER AL ORDERABLES Final Result Performing Organization Address City/State/[facility] Co de Phone Number [facility] [address] [place] [address] [facility] [place], [place] documented in this encounter Visit Diagnoses Not on filedocumented in this encounter Additional Health Concerns Infection Onset Date Last Indicated Resolved Time R/O COVID-19 04/22/2022 04/22/2022 04/27/2022 22:1 5 EDT documented as of this encounter Care Teams Photo Intern Relationship Specialty Start Date End Date Unknown, Provider, PCP - General 08/11/14 04/21/22 Trina Zapata APRN [address] [place] [id number] PCP - General 04/22/22 documented as of this encounter
--- OUTSIDE RECORDS SUMMARY | 2024-10-14 21:17 | XMS_ITS | Encounter Summary ---
Author Organization [facility] Address [address] [place] [address] Care Team Providers Care Fuel Retrofitting Technician Name Role Phone Unavailable Primary Care Provider Unavailabl e Encounter Details Date Type Department Care Team (Late st Contact Info) Description 06/12/2000 Results Only [facility] conversion [address] [place] [address] Don Knowles MD [address] [place] [address] Social History Tobacco Use Types Packs/Day Years [...] Date/Time Associated Diagnosis Comments SURGICAL PATHOLOGY Routine 06/12/2000 0:00 EDT documented in this encounter Results * SURGICAL PATHOLOGY (06/12/2000 0:00 EDT) Pathology Report: SURGICAL PATHOLOGY REPORT Reports generated via electronic interface contain original data; however they are lacking the format of the original report. Caution should be taken when reading/interpreti ng unformatted reports. Name: ? MICHEL ELLA ? Accession #: ? [id number] ? : ? 1970 (Age: 29) ??F ? Collect Date: ? 06/12/2000 ? Location: ? [facility] ? Receive Date: ? 06/17/2000 ? Provider: NATIVIDAD KNOWLES MD Copy to: BENI CHOW EDUCATION AND TRAINING COORDINATOR ? Final Pathologic Diagnosis: 1. ?Skin of forehead, excision: ? - Follicular cyst, infundibular type. 2. ?Skin of thigh, left posterior, excision: ? - Follicular cyst, infundibular type. Document reviewed and electronically signed by: Jojo Anne MD Report ??Date: 06/18/2000 18:01 By the signature above, the attending physician certifies that he/she has personally conducted a gross and/or microscopic examination of the described specimens and rendered or confirmed the above diagnosis. Specimen(s) Received: A. ?Cyst of forehead B. ?Cyst L post thigh Clinical History: ? A. Epidermal inclusion cyst of forehead. ??B. Epidermal inclusion cyst of L post thigh Gross Description: ? Received in formalin labelled Michel and forehead is a avila unoriented hair bearing 1.1 x 0.3 cm skin ellipse excised to a depth of 1.0 cm. ??No discrete lesions are identified on the epidermal surface. ??On sectioning, the cut surfaces have a partida-white homogeneous 0.7 cm in greatest dimension cyst-like structure which exudes a white friable material. ??The specimen is inked, bisected and entirely submitted as (A). Received in formalin labelled Michel and left posterior thigh is a avila-partida previously incised 1.7 x 1.5 x 1.2 cm cyst-like structure. ??Upon sectioning, the cyst contains a moderate amount of partida friable sebaceous material. ??The epidermal surface is not grossly identified. ??The specimen is inked and serially sectioned. ??Two canvas products sales representative sections are submitted as (B). ??(Adina Ortega)/tmg End of Report TIERNEY COLEMAN 06/12/2000 06/17/2000 8:3 0 EDT us Don Knowles MD PATHOLOGY ORDERABLES Final Res ult TIERNEY COLEMAN [address] [place] [address] documented in this encounter Visit Diagnoses Not on filedocumented in this encounter
--- OUTSIDE RECORDS SUMMARY | 2024-10-14 21:17 | XMS_ITS | Encounter Summary ---
Author Organization [facility] Address [address] [place] [address] Care Team Providers Care Supervisor Shed Workers Name Role Phone Trina Zapata SUNITA Primary Care Provider [phone] Reason for Visit * Reason Comments Weakness pt was at work, told EMS she had a strong smell of perfume from a lady at work and now is c/o gen. weakness, nausea, dizziness. Dizziness Encounter Details Date Type Department Care Team (Late st Contact Info) Description 04/22/2022 11:12 EDT - 04/22/2022 13:[address] [facility] Emergency Department [address] [place] [address] Junior Herrera MD Near syncope (Primary Dx) Discharge Disposition: Home or Self Care Social History Tobacco Use Types Packs/Day Years Used Date Smoking Tobacco: Never Assessed Comments Unknown Sex and Gender Information Value Date Recorded Sex Assigned at Not on file Legal Sex Female 18:25 EST Gender Identity Female 04/22/2022 12:45 EDT Sexual Orientation Not on file COVID-19 Exposure Response Date Recorded In the last 10 days, have yo u been in contact with someone who was confirmed or suspected to have Coronavirus/COVID-19? No / Unsure 04/22/2022 11:19 EDT documented as of this encounter Last Filed Vital Signs Vital Sign Reading Time Taken Comments Blood Pressure 107/75 04/22/2022 1347 EDT Pulse 65 04/22/2022 1119 EDT Temperature 36.6 ??C (97.9 ??F) 04/22/2022 1119 EDT Respiratory Rate 15 04/22/2022 1119 EDT Oxygen Saturation 97% 04/22/2022 1347 EDT Inhaled Oxygen Concentration - - Weight 77.1 kg (170 lb) 04/22/2022 1119 EDT Height 160 cm (5' 3) 04/22/2022 1119 EDT Body Mass Index 30.11 04/22/2022 1119 EDT documented in this encounter Discharge Instructions * Discharge Instructions* Junior Herrera MD - 04/22/2022 13:37 EDT Your EKG, exam and lab work were all reassuringly normal. Home to rest. Continue your current medications. Follow-up with your primary care provider if needed. Return here if worse. documented in this encounter Discharge Disposition Disposition Code Departure Means Destination Home or Self [facility] documented in this encounter ED Notes * Junior Herrera MD - 04/22/2022 1345 EDT Emergency Department Visit Assessment and ED Course Patient who awoke this morning feeling tired and unwell. Encountered a woman wearing perfume at work, the scent of which made her feel lightheaded and pre syncopal. Arrives still feeling weak, no longer feels as though she is going to pass out. Endorses increased stress recently. Exam significant for anxious affect, no acute physical findings. ECG and labs, including COVID swab, all normal. Patient reassured. Ambulatory in the department prior to discharge. Discharged home, Encouraged follow-up with PCP. She indicates understanding of return precautions. Final diagnoses: Near syncope Disposition: Discharged Chief complaint: Dizziness, near syncope HPI Ella Fritz is a 51 y.o. female who presents to the ED for dizziness, near syncope. Previously healthy patient who awoke not feeling well this morning, much more tired than usual. Shewent to work, encountered a woman who was wearing a strong perfume. The scent made her dizzy and she felt as if she was going to pass out. Did not actually do so. Arrives now still complaining of feeling generally weak and unwell, but denies chest pain or dyspnea, no abdominal pain, no chills or f ever, no nausea. She endorses increased stress at her job, also had a very upsetting conversation with a friend over the weekend. History was provided by: Patient Patient's pertinent PMH, FH, SH were reviewed and edited as necessary. ROS A focused review of systems was performed. Pertinent positives and negatives as noted in HPI. Physical Exam BP 141/90 (BP Cuff Location: Right arm, BP Patient Position: Sitting) Pulse 65 Temp 36.6 ??C (97.9 ??F) (Oral) Resp 15 Ht 160 cm (63) Wt 77.1 kg (170 lb) SpO2 97% BMI 30.11 kg/m?? A medical screening exam was performed. Physical Exam Vitals and nursing note reviewed. Constitutional: General: She is not in acute distress. Appearance: She is well-developed and well-nourished. Comments: Anxious middle-aged woman in no distress HENT: Nose: Nose normal. Mouth/Throat: Mouth: Mucous membranes are moist. Pharynx: Oropharynx is clear. Eyes: Extraocular Movements: EOM normal. Conjunctiva/sclera: Conjunctivae normal. Pupils: Pupils are equal, round, and reactive to light. Cardiovascular: Rate and Rhythm: Normal rate and regular rhythm. Heart sounds: Normal heart sounds. Pulmonary: Effort: Pulmonary effort is normal. Breath sounds: Normal breath sounds. Abdominal: Palpations: Abdomen is soft. Tenderness: There is no abdominal tenderness. Musculoskeletal: General: Normal range of motion. Cervical back: Normal range of motion and neck supple. Skin: General: Skin is warm and dry. Neurological: Mental Status: She is alert and oriented to person, place, and time. Cranial Nerves: No cranial nerve deficit. Psychiatric: Comments: Anxious affect An EKG was obtained and independently interpreted. Normal sinus rhythm at a rate of 70 with no acute ischemic changes Laboratory results independently reviewed. Procedures Procedures * Karen Roland RN - 04/22/2022 1217 EDT Spoke with patient's sister Barbie following permission from patient. Sister updated with plan of care at this time. Number [phone] for updates * Karen Roland, EMBER - 04/22/2022 1130 EDT Blood drawn via straight stick per protocol, SST, lavender tube(s) sent to lab per order. documented in this encounter Plan of Treatment Not on file documented as of this encounter Procedures Procedure Name Priority Date/Time Associated Diagnosis Comments ECG REPORT - SCANNED 04/22/2022 15:27 EDT ZZCOVID-19 [facility] (TESTING ONLY) STAT 04/22/2022 11:41 EDT COVID-19 TESTING STAT 04/22/2022 11:4 1 EDT DIFFERENTIAL MANUAL Today 04/22/2022 1 1:41 EDT ZZHN INFLUENZA A AND B, RSV PCR STAT 04/22/2022 11:41 EDT COMPLETE BLOOD COUNT AND DIFFERENTIAL STAT 04/22/2022 11:41 EDT COMPREHENSIVE METABOLIC PANEL (CMP) STAT 04/22/2022 11:41 EDT POCT URINE DIPSTICK, VISUAL READ STAT 04/22/2022 11:26 EDT EKG 12-LEAD STAT 04/22/2022 11:21 EDT documented in this encounter Results * ECG REPORT - SCANNED (04/22/2022 15:27 EDT) 04/22/2022 15:2 7 EDT us Scan 2 [employer] Manager PROCEDURE/MINOR SURGICAL OR DERABLES Final Result * DIFFERENTIAL MANUAL (04/22/2022 11:41 EDT) % Neutrophils 41.0 % 04/22/2022 12:46 EDT [facility] % Lymphocytes 52.0 % [facility] Monocytes 3.0 % 04/22/2022 12:46 [facility] % Eosinophils 3.0 % 04/22/2022 12:46 [facility] % Basophils 1.0 % 04/22/2022 12:46 [facility] Absolute Neutrophils 2.43 2.20 - 8.85 K/cmm 04/22/2022 12:46 [facility] Absolute Lymphocytes 3.08 1.09 - 3.30 K/cmm 04/22/2022 12:46 [facility] Absolute Monocytes 0.18 0.10 - 0.80 K/cmm 04/22/2022 12:46 [facility] Absolute Eosinophils 0.18 0.03 - 0.61 K/cmm 04/22/2022 12:46 [facility] ABS Basophils 0.06 0.01 - 0.11 K/cmm 04/22/2022 12:46 EDT [facility] Blood VENOUS BLOOD / Unknown Venipuncture / Unknown 04/22/2022 11:41 EDT 04/22/2022 11:44 EDT us Junior Herrera MD HEMATOLOGY & PF4 ORDERABLES Fi nal Result Performing Organization Address [facility] Co de Phone Number [facility] [address] [place] [address] * COVID-19 [facility] (TESTING ONLY) (04/22/2022 11:41 EDT) Swab ENTIRE NASOPHARYNX / Unknown Swab / Unknown 04/22/2022 11:41 EDT 04/22/2022 11:44 EDT us Junior Herrera MD MICROBIOLOGY - GENERAL ORDERAB LES Final Result Performing Organization Address City/[facility]/ZIP Co de Phone Number [facility] [address] [place] [address] * COVID-19 TESTING (04/22/2022 11:41 EDT) [facility] COVID-19 rt-PCR Result Negative Negative 04/22/2022 12:34 EDT [facility] Performing Lab Cepheid [facility] 04/22/2022 12:34 EDT [facility] Swab ENTIRE NASOPHARYNX / Unknown Swab / Unknown 04/22/2022 11:41 EDT 04/22/2022 11:44 EDT Junior Herrera MD MICROBIOLOGY - GENERAL ORDERAB LES Final Result Performing Organization Address [facility]/ZIP Co de Phone Number [facility] [address] [place] [address] * INFLUENZA A AND B,RSV PCR (04/22/2022 11:41 EDT) [facility] FLU A RNA Result (FLARES) Negative Negative 04/22/2022 12:34 EDT [facility] FLU B RNA Result (FLBRES) Negative Negative 04/22/2022 12:34 EDT [facility] RSV RNA Result (RSVRES) Negative Negative 04/22/2022 12:34 EDT [facility] Swab ENTIRE NASOPHARYNX / Unknown Swab / Unknown 04/22/2022 11:41 EDT 04/22/2022 11:44 EDT us Junior Herrera MD MICROBIOLOGY - GENERAL ORDERAB LES Final Result Performing Organization Address [facility]/ZIP Co de Phone Number [facility] [address] [place] [address] * COMPREHENSIVE METABOLIC PANEL (CMP) (04/22/2022 11:41 EDT) [facility] Sodium 139 136 - 145 mmol/L 04/22/2022 12:05 EDT [facility] Potassium 4.6 3.5 - 5.0 mmol/L 04/22/2022 12:05 EDT [facility] Chloride 102 96 - 110 mmol/L 04/22/2022 12:05 EDT [facility] CO2 Total 27 22 - 32 mmol/L 04/22/2022 12:[facility] Glucose 95 70 - 100 mg/dL 04/22/2022 12:05 [facility] BUN 16 10 - 26 mg/dL 04/22/2022 12:05 [facility] Creatinine 0.85 0.52 - 1.04 mg/dL 04/22/2022 12:05 [facility] eGFR 83 >60 mL/min/1.7 3m2 04/22/2022 12:05 [facility] Total Protein 7.3 6.3 - 8.2 g/dL 04/22/2022 12:05 [facility] Albumin 4.7 3.4 - 4.9 g/dL 04/22/2022 12:05 [facility] Alkaline Phosphatase 79 38 - 126 U/L 04/22/2022 12:05 [facility] AST 24 15 - 46 U/L 04/22/2022 12:05 [facility] ALT 18 <35 U/L 04/22/2022 12:05 [facility] Bilirubin, Total 0.5 <1.4 mg/dL 04/22/20 12:05 [facility] Calcium 9.3 8.5 - 10.5 mg/dL 04/22/2022 12:05 [facility] Albumin/Globulin Ratio 1.8 1.0 - 2.5 04/22/2022 12:05 [facility] Anion Gap 10 5 - 14 04/22/2022 12:05 [facility] Blood VENOUS BLOOD / Unknown Venipuncture / Unknown 04/22/2022 11:41 EDT 04/22/2022 11:44 EDT us Junior Herrera MD CHEMISTRY & BLOOD GAS ORDERABL ES Final Result [facility] [address] [place] [address] * (ABNORMAL) COMPLETE BLOOD COUNT AND DIFFERENTIAL (04/22/2022 11:41 EDT) WBC 5.92 4.00 - 12.40 K/cmm 04/22/2022 12:03 [facility] RBC 4.56 3.86 - 5.04 M/cmm 04/22/2022 12:03 [facility] Hemoglobin 13.6 11.6 - 15.2 gm/dL 04/22/2022 12:03 [facility] HCT 41.5 34.9 - 44.4 % 04/22/2022 12:03 [facility] MCV 91 81 - 98 fl 04/22/2022 12:03 [facility] MCH 29.8 26.7 - 33.3 pg 04/22/2022 12:03 [facility] MCHC 32.8 32.1 - 35.9 gm/dL 04/22/2022 12:03 [facility] RDW-CV 13.7 <14.7 % 04/22/2022 12:03 [facility] RDW-SD 46.0 <50.4 fl 04/22/2022 12:03 [facility] PLT 210 141 - 377 K/cmm 04/22/2022 12:03 [facility] MPV 8.8(L) 9.5 - 12.7 fl 04/22/2022 12:03 [facility] Type of Differential: Manual 04/22/2022 12:03 [facility] Blood VENOUS BLOOD / Unknown Venipuncture / Unknown 04/22/2022 11:41 EDT 04/22/2022 11:44 EDT us Junior Herrera MD PACKAGES & DNA PROBE ORDERABLE S Final Result [facility] [address] [place] [address] * POCT URINE DIPSTICK, VISUAL READ (04/22/2022 11:26 EDT) Color, UA Yellow Clarity, UA Clear Glucose, UA Negative . mg/dL Bilirubin, UA Negative Negative Ketones, UA Negative . mg/dL Spec Grav, UA 1.010 1.005 - 1.030 Blood, UA Negative Negative pH, UA 6.0 4.6 - 8.0 Protein, UA Negative . mg/dL Urobilinogen, UA 0.2 0.2 - 1.0 E.U./dL Nitrite, UA Negative . Leuk Esterase Negative Negative Comment Urine URINE SPECIMEN COLLECTION, CLEAN CATCH / Unknown 04/22/2022 11:26 EDT Junior Herrera MD POINT OF CARE TEST ORDERABLES Final Result * EKG 12-LEAD (04/22/2022 11:21 EDT) 04/22/2022 11:2 1 EDT Narrative [facility] 04/22/2022 15:22 EDT ? CV ? Test Date: ?2022-04-22 Pat Name: ? ELLA CASTROGOMERY ?Department: ? Room: ? A05 Gender: ? Female ? Wind Up Worker: ?? [place] : ?1970 ? Requested By: JENNIFER Garcia Order Number: [id number] ?Frannie BERRY: ?? JAKE MAE MD ? Measurements Intervals ?[place] ? Rate: ? 70 ? P: ?53 [place]: ? 140 ?QRS: ?13 QRSD: ? 84 ? T: ?39 QT: ? 384 ? QTc: ?414 ? Interpretive Statements Normal sinus rhythm No previous ECG available for comparison I reviewed the tracing and have either agreed or edited the findings in this report. Electronically Signed On 04-22-2022 15:22:37 EDT by JAKE MAE MD. Procedure Note Jake Mae MD - 04/22/2022 [facility] Test Date: 2022-04-22 Pat Name: ELLA FRITZ Department: Room: [facility] Gender: Female Wind Up Worker: [place] : 1970 Requested By: JENNIFER Garcia Order Number: [id number] Frannie MD: JAKE MAE MD Measurements Intervals [place] Rate: 70 P: 53 NH: 140 QRS: 13 QRSD: 84 T: 39 QT: 384 QTc: 414 Interpretive Statements Normal sinus rhythm No previous ECG available for comparison I reviewed the tracing and have either agreed or edited the findings inthis report. Electronically Signed On 04-22-2022 15:22:37 EDT by JAKE ESQUIVEL. us Junior Herrera MD CARDIAC ECG ORDERABLES Final R esult Performing Organization Address City/State/[facility] Co de Phone Number [facility] documented in this encounter Visit Diagnoses Diagnosis Near syncope- Primary Syncope and collapse documented in this encounter Additional Health Concerns Infection Onset Date Last Indicated Resolved Time R/O COVID-19 04/22/2022 04/22/2022 04/27/2022 22:1 5 EDT documented as of this encounter Care Teams Supervisor Shed Workers Relationship Specialty Start Date End Date Trina Zapata APRN [address] [place] [address] PCP - General 04/22/22 documented as of this encounter
--- OUTSIDE RECORDS SUMMARY | 2024-10-14 21:17 | XMS_ITS | Referral Summary ---
Author Organization [facility] Address [address] [place] [address] Care Team Providers Care Medicare Biller Name Role Phone BennyTrina rey SUNITA Primary Care Provider [phone] [phone] Allergies No known active allergies Social History Tobacco Use Types Packs/Day Years Used Date Smoking Tobacco: Never Assessed Comments Unknown Sex and Gender Information Value Date Recorded Sex Assigned at Not on file Legal Sex Female 18:25 EST Gender Identity Female 04/22/2022 12:45 EDT Sexual Orientation Not on file Last Filed Vital Signs Vital Sign Reading [...] Body Mass Index 30.11 04/22/2022 1119 EDT Plan of Treatment Not on file Insurance [facility] Care Teams Medicare Biller Relationship Specialty Start Date End Date Trina Zapata APRN [address] [place] [address] PCP - General 04/22/22
--- OUTSIDE RECORDS SUMMARY | 2024-10-14 21:17 | XMS_ITS | Encounter Summary ---
Author Organization [facility] Address [address] [place] [address] Care Team Providers Care Rn Transplant Name Role Phone Unknown, Provider Primary Care Provider Hoang morales Encounter Details Date Type Department Care Team (Late st Contact Info) Description 08/09/2014 Results Only [facility] [phone] Jaquelin Almonte, PHARMACIST INTERN [address] [facility] [address] [place] [address] Social History Tobacco Use Types Packs/Day Years [...] Procedure Name Priority Date/Time Associated Diagnosis Comments PAP TEST- RESULT ONLY Routine 08/09/2014 0:00 EST documented in this encounter Results * PAP TEST- RESULT ONLY (08/09/2014 0:00 EST) Pathology Report: CYTOPATHOLOGY REPORT Reports generated via electronic interface contain original data; however they are lacking the format of the original report. Caution should be taken when reading/interpreti ng unformatted reports. Name: ? ELLA FRITZ ? Accession #: ? [id number] ? : ? 1970 (Age: 43) ??F ?Collect Date: ? 08/09/2014 ? Location: ? [facility] ? Receive Date: ? 08/11/2014 ? Provider: JAQUELIN ALMONTE PHARMACIST INTERN Copy to: ? Final Report SPECIMEN ADEQUACY ? Satisfactory for Evaluation - transformation zone component present GENERAL CATEGORIZATION ? Other, see interpretation INTERPRETATION ? Endometrial cells present in a woman equal to or greater than age 40. Negative for Intraepithelial Lesion. EDUCATIONAL NOTES/RECOMMENDATI ONS ? Benign appearing endometrial cells on Pap tests are usually a normal finding in women with regular menstrual cycles, especially if the Pap test was collected during the first half of the menstrual cycle. There is data showing that endometrial cells on Pap tests may be associated with endometrial/uterin e abnormalities in post menopausal women or in perimenopausal women with abnormal bleeding. There is limited data on the significance of benign endometrial cells in post menopausal women on HRT. ??Clinical correlation is recommended. Note: ??The Pap test is not an accurate test for the screening of endometrial lesions and should not be used as a follow up in patients with clinical suspicion of endometrial pathology. Last Menstrual Period: 08/16/14 Hormonal/Contracep tive status: Tubal ligation Specimen/Source: ??Pap Test, Endocervix, ThinPrep Imaging System with manual evaluation Document reviewed and electronically signed by: ? Edmundo Huerta, URSULA(ASCP) ? Report ??Date: 08/17/2014 11:33 HPV with Pap Test ? Date Ordered: ? 08/17/2014 ? Status: ?? Signed Out ?Date Complete: ? 2014 ? By: ??System Interface ? Date Reported: ? 2014 ? Interpretation RESULT: Negative for HPV. No E6 or E7 mRNA is detected from HPV types 16,18,31,33,35, 39,45,51,52,56,58, 59,66, and 68 by title manager mediated amplification. Comments Document reviewed and electronically signed by: ? System Interface ? Report date: 2014 By the signature above, the attending physician certifies that he/she has personally conducted a gross and/or microscopic examination of the described specimens and rendered or confirmed the above diagnosis. End of Report [facility] 08/09/2014 08/11/2014 us Jaquelin Almonte PHARMACIST INTERN PATHOLOGY ORDERABLES Jazzmine ayoub Result Performing Organization Address City/State/[facility] Co de Phone Number [facility] [address] [place] [address] documented in this encounter Visit Diagnoses Not on filedocumented in this encounter Care Teams Rn Transplant Relationship Specialty Start Date End Date Unknown, Provider, PCP - General 08/11/14 04/21/22 documented as of this encounter
--- OUTSIDE RECORDS SUMMARY | 2024-10-14 21:17 | XMS_ITS | Encounter Summary ---
Author Organization [facility] Address [address] [place] [address] Care Team Providers Care Ophthalmology Assistant Name Role Phone Trina Zapata APRN Primary Care Provider [phone] Encounter Details Date Type Department Care Team (Latest Contact Info) Description 04/22/2022 Travel Social History Tobacco Use Types Packs/Day Years [...] 11:19 EDT documented as of this encounter Plan of Treatment Not on file documented as of this encounter Visit Diagnoses Not on filedocumented in this encounter Additional Health Concerns Infection Onset Date Last Indicated Resolved Time R/O COVID-19 04/22/2022 04/22/2022 04/27/2022 22:1 5 EDT documented as of this encounter Care Teams Ophthalmology Assistant Relationship Specialty Start Date End Date Trina Zapata APRN [address] [facility] [address] [place] [address] PCP - General 04/22/22 documented as of this encounter
--- OUTSIDE RECORDS SUMMARY | 2024-10-14 21:17 | XMS_ITS | Encounter Summary ---
Author Organization [facility] Address [address] [place] [address] Care Team Providers Care Global Implementation Manager Name Role Phone Trina Zapata SUNITA Primary Care Provider [phone] Encounter Details Date Type Department Care Team (Late st Contact Info) Description 04/28/2022 Lab Requisition [facility] Pathology & Laboratory Medicine - [facility] [address] [place] [address] Outr Resulting Lab, Provider Social History Tobacco [...] Procedure Name Priority Date/Time Associated Diagnosis Comments LYME AB Routine 04/27/2022 14:35 EDT documented in this encounter Results * LYME AB (04/27/2022 14:35 EDT) Lyme Ab Negative Negative 04/29/2022 11:19 EDT [facility] Blood VENOUS BLOOD / Unknown 04/27/2022 14:35 EDT 04/28/2022 17:03 EDT us Provider Outr Resulting Lab IMMUNOLOGY AND SEROL OGY ORDERABLES Final Result [facility] [address] [place] [address] documented in this encounter Visit Diagnoses Not on filedocumented in this encounter Care Teams Global Implementation Manager Relationship Specialty Start Date End Date Trina Zapata APRN [address] [place] [id number] PCP - General 04/22/22 documented as of this encounter
--- OUTSIDE RECORDS SUMMARY | 2024-10-14 21:17 | XMS_ITS | Clinical Summary ---
Author Organization [facility] Address [address] [place] [address] Care Team Providers Care Senior Mortgage Underwriter Name Role Phone BennyTrina rey SUNITA Primary Care Provider [phone] Allergies No known active allergies Social History [...] 30.11 04/22/2022 1119 EDT Plan of Treatment Health Maintenance Due Date Last Done Comments Hepatitis C Screen 1970 Hepatitis B Vaccine (1 of 3 - 19+ 3-dose series) 08/29 COVID-19 Vaccine ( season) [address] [place] [address] [place] [address] [place] [address] Care Teams Senior Mortgage Underwriter Relationship Specialty Start Date End Date Trina Zapata APRN [address] [place] [address] PCP - General 04/22/22
--- OUTSIDE RECORDS SUMMARY | 2024-10-14 21:17 | XMS_ITS | Encounter Summary ---
Author Organization [facility] Address [address] [place] [address] Care Team Providers Care Oil Refiner Name Role Phone Unavailable Primary Care Provider Unavailabl e Encounter Details Date Type Department Care Team (Late st Contact Info) Description 12/12/2004 Results Only [facility] [place] conversion [address] [place] [address] Graciela Still MD [address] [place] [address] [place] [address] Social History Tobacco Use Types Packs/Day Years [...] Procedure Name Priority Date/Time Associated Diagnosis Comments CYTOPATHOLOGY Routine 12/12/2004 0:00 EST documented in this encounter Results * CYTOPATHOLOGY (12/12/2004 0:00 EST) Pathology Report: CYTOPATHOLOGY REPORT Reports generated via electronic interface contain original data; however they are lacking the format of the original report. Caution should be taken when reading/interpreti ng unformatted reports. Name: ? ELLA REILLY ? Accession #: ? [id number] : ? 1970 (Age: 34) ??F ?Collect Date: ? 12/12/2004 Location: ? [facility] ? Receive Date: ? 12/14/2004 Provider: ?GRACIELA STILL MD Copy to: ? Specimen/Source: ?ThinPrep Pap Test, Cervix/Endocervix Last Menstrual Period: ? 12/22/03 Menstrual/Pregnanc y Status: ? Post Other: ? HPVA - HPV testing requested if ASC-US on the current ThinPrep Pap test. ? SPECIMEN ADEQUACY ? Satisfactory for Evaluation - transformation zone component present GENERAL CATEGORIZATION ? Negative for Intraepithelial Lesion or Malignancy ? Document reviewed and electronically signed by: ? Edmundo Huerta, URSULA(ASCP) ? Report Date: ??12/18/2004 08:52 End of Report [facility] 12/12/2004 12/14/2004 us Graciela Still MD PATHOLOGY ORDERABLES Final Resu lt [facility] [address] [place] [address] documented in this encounter Visit Diagnoses Not on filedocumented in this encounter
--- OUTSIDE RECORDS SUMMARY | 2024-10-14 21:17 | XMS_ITS | Encounter Summary ---
Author Organization [facility] Address [address] [place] [address] Care Team Providers Care Insurance Billing Specialist Name Role Phone Unavailable Primary Care Provider Unavailabl e Encounter Details Date Type Department Care Team (Late st Contact Info) Description 01/28/2007 Results Only [facility] conversion [address] [place] [address] [place], [place] [id number] Social History Tobacco Use Types Packs/Day Years [...] Priority Date/Time Associated Diagnosis Comments CYTOPATHOLOGY Routine 01/28/2007 0:00 EDT documented in this encounter Results * CYTOPATHOLOGY (01/28/2007 0:00 EDT) Pathology Report: CYTOPATHOLOGY REPORT Reports generated via electronic interface contain original data; however they are lacking the format of the original report. Caution should be taken when reading/interpreti ng unformatted reports. Name: ? MELBA ELLA ? Accession #: ? [id number] : ? 1970 (Age: 36) ??F ?Collect Date: ? 01/28/2007 Location: ? [facility] ? Receive Date: ? 01/29/2007 Provider: ?ANJU WATERSM Copy to: ? Specimen/Source: ?ThinPrep Pap Test, Cervix/Endocervix, processed on [employer] ThinPrep Imaging System, with manual evaluation Last Menstrual Period: ? 11/22/06 Menstrual/Pregnanc y Status: ? Other: ? HPVA - HPV testing requested if ASC-US on the current ThinPrep Pap test. ? SPECIMEN ADEQUACY ? Satisfactory for Evaluation - transformation zone component present GENERAL CATEGORIZATION ? Negative for Intraepithelial Lesion or Malignancy ? Document reviewed and electronically signed by: ? URSULA Meyer(ASCP) ? Report Date: ??02/02/2007 11:01 End of Report [facility] 01/28/2007 01/29/2007 us Anju Adams CNM PATHOLOGY ORDERABLES Final Res ult [facility] [address] [place] [address] documented in this encounter Visit Diagnoses Not on filedocumented in this encounter
--- OUTSIDE RECORDS SUMMARY | 2024-10-14 21:17 | XMS_ITS | Encounter Summary ---
Author Organization [facility] Address [address] [place] [address] Care Team Providers Care Maintenance Associate Name Role Phone Unknown, Provider Primary Care Provider Hoang morales Encounter Details Date Type Department Care Team (Late st Contact Info) Description 12/21/2018 Results Only [facility] [phone] Jaquelin Almonte, SPECIALTY FINISHING UTILITY PERSON [address] [facility] [address] [place] [address] Social History Tobacco Use Types Packs/Day Years [...] Diagnosis Comments PAP TEST- RESULT ONLY Routine 12/21/2018 0:00 EDT documented in this encounter Results * PAP TEST- RESULT ONLY (12/21/2018 0:00 EDT) Pathology Report: CYTOPATHOLOGY REPORT Reports generated via electronic interface contain original data; however they are lacking the format of the original report. Caution should be taken when reading/interpreti ng unformatted reports. Name: ? ELLA FRITZ ? Accession #: ? [id number] ? : ? 1970 (Age: 48) ??F ?Collect Date: ? 12/21/2018 ? Location: ? [facility] ? Receive Date: ? 12/23/2018 ? Provider: JAQUELIN ALMONTE SPECIALTY FINISHING UTILITY PERSON Copy to: ? Final Report SPECIMEN ADEQUACY ? Satisfactory for Evaluation - transformation zone component present GENERAL CATEGORIZATION ? Negative for Intraepithelial Lesion or Malignancy INTERPRETATION ? Reactive cellular changes associated with inflammation present (includes repair). Last Menstrual Period: 12/05/18 Hormonal/Contracep tive status: Tubal ligation Other: Additional clinical information: Z00.00 Z12.4 Z01.419 Specimen/Source: ??Pap Test, Cervix/Endocervix, ThinPrep Imaging System with manual evaluation Document reviewed and electronically signed by: ? JAQUELIN PICKETT MD ? Report ??Date: 12/28/2018 11:46 HPV with Pap Test ? Date Ordered: ? 12/28/2018 ? Status: ?? Signed Out ?Date Complete: ? 12/29/2018 ? By: ??System Interface ? Date Reported: ? 12/29/2018 ? Interpretation RESULT: Negative for HPV. No E6 or E7 mRNA is detected from HPV types 16,18,31,33,35, 39,45,51,52,56,58, 59,66, and 68 by mining analyst mediated amplification. Comments Document reviewed and electronically signed by: ? System Interface ? Report date: 12/29/2018 By the signature above, the attending physician certifies that he/she has personally conducted a gross and/or microscopic examination of the described specimens and rendered or confirmed the above diagnosis. End of Report [facility] 12/21/2018 12/23/2018 us Jaquelin Almonte SPECIALTY FINISHING UTILITY PERSON PATHOLOGY ORDERABLES [employer] ayoub Result [facility] [address] [place] [address] documented in this encounter Visit Diagnoses Not on filedocumented in this encounter Care Teams Maintenance Associate Relationship Specialty Start Date End Date Unknown, Provider, PCP - General 08/11/14 04/21/22 documented as of this encounter
--- OUTSIDE RECORDS SUMMARY | 2024-10-14 21:17 | XMS_ITS | Encounter Summary ---
Author Organization [facility] Address [address] [place] [address] Care Team Providers Care Protection Specialist Name Role Phone Unknown, Provider Primary Care Provider Trina Briceño APRN Primary Care Provider [phone] Encounter Details Date Type Department Care Team (Late st Contact Info) Description 08/28/2021 Lab Requisition [facility] Pathology & [place] [address] Outr Resulting Lab, Provider Social History Tobacco [...] Procedure Name Priority Date/Time Associated Diagnosis Comments ZZCOVID-19 TEST [facility] PCR Today 08/28/2021 10:40 EST COVID-19 TESTING Routine 08/28/2021 10:4 0 EST documented in this encounter Results * COVID-19 TEST [facility] PCR (08/28/2021 10:40 EST) Swab 08/28/2021 10:4 0 EST 08/28/2021 22:22 EST us Provider Outr Resulting Lab MICROBIOLOGY - GENER AL ORDERABLES Final Result [facility] [address] [place] [address] * COVID-19 TESTING (08/28/2021 10:40 EST) COVID-19 rt-PCR Result Negative Negative 2021 14:[address] [facility] Comment: This test has not been FDA cleared or approved. This test has been authorized by FDA under an EUA for use by authorized laboratories. This test has been authorized only for detection of nucleic acid from 2019-nCoV, not for any other viruses or pathogens. This test is only authorized for the duration of the declaration that circumstances exist justifying the authorization of emergency use of in vitro diagnostic tests for detection and/or diagnosis of 2019-nCoV under section 564(b)(1) of Act, 21 U.S.C ?? 360bbb-3(b) (1), unless the authorization is terminated or revoked sooner. Negative results do not preclude 2019-nCoV infection and should not be used as the sole basis for treatment or other patient management decisions. Negative results must be combined with clinical observations, patient history, and epidemiological information. Testing was performed using the ruben SARS-CoV-2 assay ([employer] on the Ruben 6800 System Performing Lab Ruben [address] [facility] 2021 14:[address] [facility] Swab 08/28/2021 10:4 0 EST 08/28/2021 22:22 EST us Provider Outr Resulting Lab MICROBIOLOGY - GENER AL ORDERABLES Final Result [facility] [address] [place] [address] documented in this encounter Visit Diagnoses Not on filedocumented in this encounter Additional Health Concerns Infection Onset Date Last Indicated Resolved Time R/O COVID-19 04/22/2022 04/22/2022 04/27/2022 22:1 5 EDT documented as of this encounter Care Teams Protection Specialist Relationship Specialty Start Date End Date Unknown, Provider, PCP - General 08/11/14 04/21/22 Trina Zapata APRN [address] [facility] [address] [place] [address] PCP - General 04/22/22 documented as of this encounter
== END 2024-10-14 21:16 | disposition home or self-care (01) ==
LOC: NCHCN 21:15
PROVIDERS: PCP Nurse Practitioner Family; Visit Provider Family Medicine
DX: N39.0 Urinary tract infection, site not specified (principal)
CPT/HCPCS: 87077; 87086; 87186

== ENCOUNTER 2025-02-10 16:59 | Outpatient (REF) | payer OTHER, SELFPAY ==
[2025-02-10 15:28] LABS: Abs Immature Grans 0.01 10^3/uL (0.0-0.06); Absolute Basophil Count 0.05 10^3/uL (0.0-0.2); Absolute Eosinophil Count 0.14 10^3/uL (0.0-0.7); Absolute Lymphocyte Count 2.74 10^3/uL (1.2-3.4); Absolute Monocyte Count 0.36 10^3/uL (0.1-0.8); Absolute Neutrophil Count 2.48 10^3/uL (1.2-6.7); Basophils % 0.9 %; Eosinophils % 2.4 %; HCT 37.6 % (36.0-46.0); HGB 12.5 g/dL (11.2-15.7); Immature Grans % 0.2 %; Lymphocytes % 47.4 %; MCH 29.6 pg (27.0-33.0); MCHC 33.2 % (32.0-36.0); MCV 89 fL (80-95); MPV 9.7 fL (8.0-11.0); Monocytes % 6.2 %; Neutrophils % 42.9 %; Platelet Count 213 10^3/uL (130-400); RBC 4.22 10^6/uL (3.93-5.22); RDW 13.2 % (11.7-14.6); RDW-SD 43.1 fL; WBC 5.78 10^3/uL (4.4-10.8)
[2025-02-10 15:31] LABS: ESR 8 mm/hr (0-30)
[2025-02-10 16:30] LABS: Calculated LDL 187 mg/dL (<100); Cholesterol 277 mg/dL (<200); HDL Cholesterol 71 mg/dL (>or=50); Triglyceride 99 mg/dL (<150)
[2025-02-10 17:07] LABS: C-Reactive Protein < 0.50 mg/dL (<or=0.5)
[2025-02-10 17:27] LABS: Hemoglobin A1C 5.6 % (<5.7)
[2025-02-10 22:15] LABS: Rheumatoid Factor <8.6 IU/mL (<12.0)
[2025-02-11 08:40] LABS: Cyclic Citrullinated Peptide <2.5 U/mL (<5.0)
[2025-02-11 14:07] LABS: ANA Interpretation Negative (Negative)
== END 2025-02-10 17:00 | disposition home or self-care (01) ==
LOC: NCHCN 16:59
PROVIDERS: PCP Nurse Practitioner Family; Visit Provider Nurse Practitioner Family
DX: R78.5 Finding of other psychotropic drug in blood (principal); M25.59 Pain in other specified joint; Z13.1 Encounter for screening for diabetes mellitus
CPT/HCPCS: 80061; 85652; 86200; 83036; 85025; 86038; 86140; 86431